=== PATIENT | male | born 1955 | race Caucasian/White ===

== ENCOUNTER 2024-06-24 13:53 | Outpatient (CLI) | payer MEDICARE, SELFPAY ==
--- OUTSIDE RECORDS SUMMARY | 2024-06-24 15:15 | XMS_ITS | Encounter Summary ---
Author Organization [facility] Address [address] [facility] 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 No / Unsure 11/17/2020 10:06 PM CDT documented as of this encounter Plan of Treatment Upcoming Encounters Date Type Department Care Team (Late st Contact Info) Description 07/01/2024 8:30 AM CDT Office Visit [facility] [address] [place] [address] Milad Willingham, BARREL RIBS SOLDERER, INDUSTRIAL HYGIENE MANAGER [address] [address] 07/03/2024 8:20 AM CDT Outpatient Clinic Visit [facility] Weight Management [address] [place] [address] Ofelia Nguyen APRN, INDUSTRIAL HYGIENE MANAGER [address] [place] [address] Discharge Disposition: Discharged to home or Selfcare 07/17/2024 8:45 AM CDT Audiology [facility] - Audiology Clinic - [facility] [address] [place] [address] Clarissa Bryant, AUD CCC A [address] [place] [address] Discharge Disposition: Discharged to home or Selfcare 11/16/2024 9:00 AM CDT Office Visit [facility] [address] [place] [address] Phillip Mancia, BARREL RIBS SOLDERER, CAD DEVELOPER [address] [place], [place] [id number] 05/06/2025 10:30 AM COMBAT CONTROL Office Visit [facility] [address] [place] [address] Marilin Allen, BARREL RIBS SOLDERER, CAD DEVELOPER [address] [place] [address] Discharge Disposition: Discharged to home or Selfcare documented as of this encounter Goals Goal Patient Goal Type Associated Problems Recent Progress Patient-Stated? 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 Reviewed by Dr. Kamini Albert, PhD. Reviewed by Michi Garza M.D. 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 of connective and other soft tissue of pelvis Malignant neoplasm of anus, unspecified (HCC) Anemia, unspecified Other fatigue documented in this encounter Additional Health Concerns Infection Onset Date Last Indicated Resolved Time COVID - 19 04/18/2021 04/18/2021 04/20/2021 9:41 AM COMBAT CONTROL COVID - 19 Confirmed 04/18/2021 04/18/2021 022 12:16 AM COMBAT CONTROL Assessment Noted Time PHQ-9 Depression Total Score: 0 06/22/19 21 10:00 AM CDT documented as of this encounter Care Teams Water Engineer Relationship Specialty Start Date End Date Vasile Lowery MD [address] [place] [address] PCP - General 08/22/09 documented as of this encounter
--- OUTSIDE RECORDS SUMMARY | 2024-06-24 15:15 | XMS_ITS | Encounter Summary ---
Author Organization [facility] Address [address] [facility] [place] [address] Phone Care Team Providers Care Orthodontic Technician Name Role Phone Vasile Lowery MD Primary Care Provider [phone] Reason for Visit * Reason Comments Medication Refill Encounter Details Date Type Department Care Team (Late st Contact Info) Description 05/28/2024 Refill [facility] - Internal Medicine & Pediatrics - [address] [place], [place] [address] Vasile Lowery MD [address] [place], [place] [id number] Medication Refill Social History Tobacco Use Types Packs/Day Years Used Date Smoking Tobacco: Never Passive Smoke Exposure: Past Smokeless Tobacco: Never Alcohol Use Standard Drinks/Week Comments No 0 (1 standard drink = 0.6 oz pur e alcohol) rare use only PHQ-2 Answer Date Recorded Total Score - Questions 1-9 0 12/30 Education Answer Date Recorded What is the highest level of school you have completed or the highest degree you have received? 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 Not on file documented as of this encounter Miscellaneous Notes * Telephone Encounter - Vasile Lowery MD - 05/29/2024 9:00 AM CST Rx filled electronically (E-prescribe) CTOR SALES SUPPORT documented in this encounter Plan of Treatment Upcoming Encounters Date Type Department Care Team (Late st Contact Info) Description 07/01/2024 8:30 AM CDT [facility] [address] [place] [address] Milad Willingham, NURSING SERVICE ADMINISTRATOR, ELECTRIC SEALING MACHINE OPERATOR [address] [address] 07/03/2024 8:20 AM CDT Outpatient Clinic Visit [facility] Weight Management [address] [place] [address] Ofelia Nguyen, NURSING SERVICE ADMINISTRATOR, ELECTRIC SEALING MACHINE OPERATOR [address] [place] [address] Discharge Disposition: Discharged to home or Selfcare 07/17/2024 8:45 AM CDT Audiology [facility] [place] - Audiology Clinic - [place] [address] [place] [address] Clarissa Bryant, AUD CCC A [address] [place] [address] Discharge Disposition: Discharged to home or Selfcare 11/16/2024 9:00 AM CDT Office Visit [facility] [address] [place] [address] Phillip Mancia APRN, WATER OPERATOR [address] [place], [place] [id number] 05/06/2025 10:30 AM DIRECTOR SALES SUPPORT Office Visit [facility] [address] [place] [facility] [address] Marilin Allen, NURSING SERVICE ADMINISTRATOR, WATER OPERATOR [address] [place] [address] Discharge Disposition: Discharged to home or Selfcare documented as of this encounter Goals Goal Patient Goal Type Associated Problems Recent Progress Patient-Stated? Author Pursue weight loss Healthy Lifestyle On track(2024 9:04 AM DIRECTOR SALES SUPPORT) Yes Rachel Hu, RN Note: Goal Reviewed with:Ray Readiness to change: Ready to change Department associated with goal[facility] Steps to achieve goal: [facility] program Improve diet and eat healthier Help with rectal discomfort Manuel would like to walk again Pain Management On track(2024 9:58 AM CDT) No Shanice De Souza, RN Note: Goal Reviewed with: patient Readiness to change: Ready to change Department associated with goal: [facility] Steps to achieve goal: Physical therapy surgery documented as of this encounter Visit Diagnoses Not on filedocumented in this encounter Additional Health Concerns Assessment Noted Time PHQ-9 Depression Total Score: 0 01/11/20 23 11:06 AM CDT documented as of this encounter Care Teams Orthodontic Technician Relationship Specialty Start Date End Date Vasile Lowery MD [address] [place] [address] PCP - General 08/22/09 documented as of this encounter
--- OUTSIDE RECORDS SUMMARY | 2024-06-24 15:15 | XMS_ITS | Encounter Summary ---
Author Organization [facility] Address [address] [facility] [place] [address] Phone Care Team Providers Care Agency Manager Name Role Phone Vasile Lowery MD Primary Care Provider [phone] Encounter Details Date Type Department Care Team (Late st Contact Info) Description 07/04/2020 Telephone [facility] [address] [place] [address] Iva Amador, PT [address] [place], [place] [address] Social History Tobacco Use Types Packs/Day Years Used Date Smoking Tobacco: Never Smokeless Tobacco: Never Alcohol Use Standard Drinks/Week Comments No 0 (1 standard drink = 0.6 oz pur e alcohol) rare use only PHQ-2 Answer Date Recorded Total Score - Questions 1-9 0 05/31 Sex and Gender Information Value Date Recorded Sex Assigned at Not on file Legal Sex Male 3:54 AM ARCHIVAL STUDIES PROFESSOR Gender Identity Not on file Sexual Orientation Not on file 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 No / Unsure 06/28/2020 8:35 AM CDT documented as of this encounter Miscellaneous Notes * Telephone Encounter - Iva Amador PT - 07/04/2020 8:14 AM CDT ----- Message from Jannet Hinds sent at 07/04/2020 7:58 AM CDT ----- Roberto Carlos Cummings will not be in today as he had a in his family. He is aware of his next appt documented in this encounter Plan of Treatment Upcoming Encounters Date Type Department Care Team (Late st Contact Info) Description 07/01/2024 8:30 AM CDT [facility] [address] [place] [address] Milad Willingham APRN, HEATING REPAIR TECHNICIAN [address] [address] 07/03/2024 8:20 AM CDT Outpatient Clinic Visit [facility] Weight Management [address] [place] [address] Ofelia Nguyen AUTOMOBILE BODY REPAIR SUPERVISOR, HEATING REPAIR TECHNICIAN [address] [place] [address] Discharge Disposition: Discharged to home or Selfcare 07/17/2024 8:45 AM CDT Audiology [facility] - Audiology Clinic - [address] [place] [address] Clarissa Bryant, AUD CCC A [address] [place] [address] Discharge Disposition: Discharged to home or Selfcare 11/16/2024 9:00 AM CDT Office Visit [facility] [address] [place] [address] Phillip Mancia, AUTOMOBILE BODY REPAIR SUPERVISOR, PURLER [address] [place] [address] 05/06/2025 10:30 AM ARCHIVAL STUDIES PROFESSOR Office Visit [facility] [address] [place] [address] Marilin Allen, AUTOMOBILE BODY REPAIR SUPERVISOR, PURLER [address] [place] [address] Discharge Disposition: Discharged to home or Selfcare documented as of this encounter Visit Diagnoses Not on filedocumented in this encounter Additional Health Concerns Infection Onset Date Last Indicated Resolved Time COVID - 19 04/18/2021 04/18/2021 04/20/2021 9:41 AM ARCHIVAL STUDIES PROFESSOR COVID - 19 Confirmed 04/18/2021 04/18/2021 022 12:16 AM ARCHIVAL STUDIES PROFESSOR Assessment Noted Time PHQ-9 Depression Total Score: 0 06/22/19 21 10:00 AM CDT documented as of this encounter Care Teams Agency Manager Relationship Specialty Start Date End Date Vasile Lowery MD [address] [place] [address] PCP - General 08/22/09 documented as of this encounter
--- OUTSIDE RECORDS SUMMARY | 2024-06-24 15:15 | XMS_ITS | Encounter Summary ---
Author Organization [facility] Address [address] [facility] [place] [address] Phone Care Team Providers Care Blanking Press Operator Name Role Phone Vasile Lowery MD Primary Care Provider [phone] Encounter Details Date Type Department Care Team (Late st Contact Info) Description 10/30/2021 [facility]phone [facility] [address] [place] [address] Ida Nicole MD [address] [place] [address] Social History Tobacco Use Types Packs/Day Years Used Date Smoking Tobacco: Never Smokeless Tobacco: Never Alcohol Use Standard Drinks/Week Comments No 0 (1 standard drink = 0.6 oz pur e alcohol) rare use only PHQ-2 Answer Date Recorded Total Score - Questions 1-9 0 05/03 Education Answer Date Recorded What is the highest level of school you have completed or the highest degree you have received? 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 No / Unsure 11/01/2021 10:45 AM CDT documented as of this encounter Miscellaneous Notes * Telephone Encounter - Haroon Montenegro - 10/31/2021 8:40 AM CDT Scheduled appt for 11.23 * Telephone Encounter - Ida Nicole MD - 10/30/2021 3:07 PM CDT No * Telephone Encounter - Margy Rodriguez RN - 10/30/2021 3:04 PM CDT No recommendations from MRI??? * Telephone Encounter - Ida Nicole MD - 10/30/2021 2:58 PM CDT Need to see Dr. Gonzales. * Telephone Encounter - Anais Goss RN - 10/30/2021 1:11 PM CDT 10-20-21 Caudal epidural steroid injection under fluoroscopic guidance by Dr. Nicole Pt reports pain to be currently located in bilateral buttock Pt reports pain relief as follows: 0% for per pt epidural did not work Pt reports during this time of relief the ability to nothing easier . Pt uses rest and OTC pain medications. for conservative treatment of pain. Is the patient doing home stretching or current PT treatment? Did PT but it did not work. Pt does do some home stretching Curent pain score at rest is 2 and with activity is 8. Blood thinners: none Medicare A/B Pt does have a new L MRI from 10-23-21 Please review and advise * Telephone Encounter - Haroon Montenegro - 10/30/2021 9:36 AM CDT Patient called to follow up on his last injections. documented in this encounter Plan of Treatment Upcoming Encounters Date Type Department Care Team (Late st Contact Info) Description 07/01/2024 8:30 AM CDT [facility] [address] [place] [address] Milad Willingham APRN, THERAPIST'S ASSISTANT [address] [address] 07/03/2024 8:20 AM CDT Outpatient Clinic Visit [facility] Weight Management [address] [place] [address] Ofelia Nguyen APRN, THERAPIST'S ASSISTANT [address] [place] [address] Discharge Disposition: Discharged to home or Selfcare 07/17/2024 8:45 AM CDT Audiology [facility] [place] - [facility] [place] [address] [place] [address] Clarissa Bryant, AUD CCC A [address] [place] [address] Discharge Disposition: Discharged to home or Selfcare 11/16/2024 9:00 AM CDT Office Visit [facility] [address] [place] [address] Mancia, Phillip A, FOREST WORKER, CAN PUSHER [address] [place] [address] 05/06/2025 10:30 AM LICENSED PRACTICAL NURSE Office Visit [facility] [address] [place] [address] BenitesseMarilin, FOREST WORKER, CAN PUSHER [address] [place] [address] Discharge Disposition: Discharged to home or Selfcare documented as of this encounter Goals Goal Patient Goal Type Associated Problems Recent Progress Patient-Stated? Author Manuel would like to walk again Pain Management On track(2024 9:58 AM CDT) Shanice Hall, RN Note: Goal Reviewed with: patient Readiness to change: Ready to change Department associated with goal: [facility] Steps to achieve goal: Physical therapy surgery documented as of this encounter Visit Diagnoses Not on filedocumented in this encounter Additional Health Concerns Assessment Noted Time PHQ-9 Depression Total Score: 0 06/22/19 21 10:00 AM CDT documented as of this encounter Care Teams Blanking Press Operator Relationship Specialty Start Date End Date Vasile Lowery MD [address] [place] [address] PCP - General 08/22/09 documented as of this encounter
--- OUTSIDE RECORDS SUMMARY | 2024-06-24 15:15 | XMS_ITS | Encounter Summary ---
Author Organization [facility] Address [address] [facility] 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 No / Unsure 07/24/2021 7:56 AM CDT documented as of this encounter Plan of Treatment Upcoming Encounters Date Type Department Care Team (Late st Contact Info) Description 07/01/2024 8:30 AM CDT [facility] [address] [place] [address] Milad Willingham, COMMUNITY CENTER COORDINATOR, COMMUNICATION EQUIPMENT REPAIRER [address] [address] 07/03/2024 8:20 AM CDT [facility] [address] [place] [address] Ofelia Nguyen COMMUNITY CENTER COORDINATOR, COMMUNICATION EQUIPMENT REPAIRER [address] [place] [address] Discharge Disposition: Discharged to home or Selfcare 07/17/2024 8:45 AM CDT Audiology [facility] - [facility] - [facility] [address] [place] [address] Clarissa Bryant, AUD CCC A [address] [place] [address] Discharge Disposition: Discharged to home or Selfcare 11/16/2024 9:00 AM CDT Office Visit [facility] [address] [place] [address] Phillip Mancia APRN, AGENT SPA DESK [address] [place] [address] 05/06/2025 10:30 AM MICA MACHINE OPERATOR Office Visit [facility] [address] [place] [phone] de Marilin Lee, COMMUNITY CENTER COORDINATOR, AGENT SPA DESK [address] [place] [address] Discharge Disposition: Discharged to home or Selfcare documented as of this encounter Goals Goal Patient Goal Type Associated Problems Recent Progress Patient-Stated? Author Manuel would like to walk again Pain Management On track(2024 9:58 AM CDT) No Shanice De Souza RN Note: Goal Reviewed with: patient Readiness to change: Ready to change Department associated with goal: [facility] Steps to achieve goal: Physical therapy surgery documented as of this encounter Results * TYPE & SCREEN (CROSSMATCH CONVERTIBLE) (08/01/2021 7:28 AM CDT) ABO TYPING B 08/01/2021 8:36 AM CDT [facility] RH Positive 08/01/2021 8:36 AM CDT [facility] ABSC Negative 08/01/2021 8:36 AM CDT [facility] Blood Venipuncture / Unknown 08/01/2021 7:28 AM CDT 08/01/2021 7:47 AM CDT us Param Villatoro MD BLOOD BANK ORDERABLES Edited Res ult - Final [facility] [address] [place] [address], documented in this encounter Visit Diagnoses Diagnosis Preop testing- Primary Preoperative examination, unspecified documented in this encounter Additional Health Concerns Assessment Noted Time PHQ-9 Depression Total Score: 0 06/22/19 21 10:00 AM CDT documented as of this encounter Care Teams Associate Quality Engineer Relationship Specialty Start Date End Date Vasile Lowery MD [address] [place] [address] PCP - General 08/22/09 documented as of this encounter
--- OUTSIDE RECORDS SUMMARY | 2024-06-24 15:15 | XMS_ITS | Encounter Summary ---
Author Organization [facility] Address [address] [facility] [place] [address] Phone Care Team Providers Care Customer Service Cashier Name Role Phone Vasile Lowery MD Primary Care Provider [phone] Encounter Details Date Type Department Care Team (Late st Contact Info) Description 06/22/2024 Results Follow-Up [facility] [address] [place] [address] Elba Mendoza, HADOOP INFRASTRUCTURE ARCHITECT, CIRCLE CUTTING SAW OPERATOR [address] [place], [place] [id number] Social History Tobacco Use Types Packs/Day Years Used Date Smoking Tobacco: Never Passive Smoke Exposure: Past Smokeless Tobacco: Never Alcohol Use Standard Drinks/Week Comments No 0 (1 standard drink = 0.6 oz pur e alcohol) rare use only [facility] Utilities Answer Date Recorded In the past 12 months has [employer] electric, gas, oil, or water company threatened to shut off services in your home? No 06/07/2024 Social Connection and Isolat ion Panel [NHANES] Answer Date Recorded In a typical week, how many times do you talk on the phone with family, friends, or neighbors? More than three times a week 06/07/2024 How often do you get togethe r with friends or relatives? More than three times a week 06/07/2024 How often do you attend chur ch or uatsdin services? 1 to 4 times per year 06/07/2024 Do you belong to any clubs o r organizations such as baptism groups, unions, fraternal or athletic groups, or school groups? No 06/07/2024 How often do you attend meet ings of the clubs or organizations you belong to? Patient declined 06/07/2024 Are you , , di vorced, , never , or living with a partner? 06/07/2024 AUDIT-C Answer Date Recorded Q1: How often do you have a drink containing alc ohol? 2-4 times a month 06/07/2024 Q2: How many drinks containi ng alcohol do you have on a typical day when you are drinking? 1 or 2 06/07/2024 Q3: How often do you have si x or more drinks on one occasion? Never 06/07/2024 Overall Financial Resource Strain (CARDIA) Answe r Date Recorded How hard is it for you to pa y for the very basics like food, housing, medical care, and heating? Not very hard 06/07/2024 PHQ-2 Answer Date Recorded Total Score - Questions 1-9 4 05/30 [facility] [place] [facility] - Occupational Stress Questionnaire Answer Date Recorded Do you feel stress - tense, restless, nervous, or anxious, or unable to sleep at night because your mind is troubled all the time - these days? Only a little 06/07/2024 Exercise Vital Sign Answer Date Recorde d On average, how many days pe r week do you engage in moderate to strenuous exercise (like a brisk walk)? 4 days 06/07/2024 On average, how many minutes do you engage in exercise at this level? 110 min 06/07/2024 Hunger Vital Sign Answer Date Recorded Within the past 12 months, y ou worried that your food would run out before you got the money to buy more. Never true 06/08/19 25 Within the past 12 months, t he food you bought just didn't last and you didn't have money to get more. Never true 06/07/2024 PRAPARE - Transportation Answer Date Re corded In the past 12 months, has l ack of transportation kept you from medical appointments or from getting medications? No 11/2024 In the past 12 months, has l ack of transportation kept you from meetings, work, or from getting things needed for daily living? No 06/07/2024 Housing Stability Vital Sign Answer Jose Juan e Recorded In the last 12 months, was t here a time when you were not able to pay the mortgage or rent on time? No 06/07/2024 In the past 12 months, how m any times have you moved where you were living? 0 06/07/2024 At any time in the past 12 m [facility], were you homeless or living in a [facility] (including now)? No 06/07/2024 Education Answer Date Recorded What is the highest level of school you have completed or the highest degree you have received? 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 Not on file Not on file documented as of this encounter Progress Notes * Alee Velasquez RN - 06/22/2024 3:31 PM CDT LMTCB documented in this encounter Plan of Treatment Upcoming Encounters Date Type Department Care Team (Late st Contact Info) Description 07/01/2024 8:30 AM CDT Office [facility] [address] [place] [address] Milad Willingham APRN, DRYWALL TAPER [address] [address] 07/03/2024 8:20 AM CDT Outpatient Clinic Visit [facility] [address] [place] [address] Ofelia Nguyen APRN, DRYWALL TAPER [address] [place] [address] Discharge Disposition: Discharged to home or Selfcare 07/17/2024 8:45 AM CDT Audiology [facility] [place] [facility] - [place] [address] [place] [address] Clarissa Bryant, AUD CCC A [address] [place] [phone] Discharge Disposition: Discharged to home or Selfcare 11/16/2024 9:00 AM CDT Office Visit [facility] [address] [place] [address] Phillip Mancia HADOOP INFRASTRUCTURE ARCHITECT, CIRCLE CUTTING SAW OPERATOR [address] [place] [address] 05/06/2025 10:30 AM STAB SETTER AND DRILLER Office Visit [facility] [address] [place] [phone] Marilin Allen, HADOOP INFRASTRUCTURE ARCHITECT, CIRCLE CUTTING SAW OPERATOR [address] [facility] [place] [place] [address] Discharge Disposition: Discharged to home or Selfcare documented as of this encounter Goals Goal Patient Goal Type Associated Problems Recent Progress Patient-Stated? Author Pursue weight loss Healthy Lifestyle On track(2024 9:04 AM STAB SETTER AND DRILLER) Yes Rachel Hu, RN Note: Goal Reviewed with:Ray Readiness to change: Ready to change Department associated with goal: [facility] Steps to achieve goal: [facility] program Improve diet and eat healthier Help with rectal discomfort Manuel would like to walk again Pain Management On track(2024 9:58 AM CDT) No Shanice De Souza, RN Note: Goal Reviewed with: patient Readiness to change: Ready to change Department associated with goal: [facility] Steps to achieve goal: Physical therapy surgery documented as of this encounter Visit Diagnoses Not on filedocumented in this encounter Additional Health Concerns Assessment Noted Time PHQ-9 Depression Total Score: 4 06/09/19 25 8:00 AM CDT documented as of this encounter Care Teams Customer Service Cashier Relationship Specialty Start Date End Date Vasile Lowery MD [address] [place] [address] PCP - General 08/22/09 documented as of this encounter
--- OUTSIDE RECORDS SUMMARY | 2024-06-24 15:15 | XMS_ITS | Data Portability ---
Author Organization [facility], 800 [facility] Neurology ([place]) Address [address] [place] [address] Care Team Providers Care Sap Abap Programmer Name Role Phone MIGUEL PUMA Primary Care Provider [phone] [facility] [place] Hematology/Oncology Assessment Encounter Date Assessment Date Assessment LastModified by Organization Details LastModified Time 01/20/2024 01/20/2024 -ORDERS: Jun- Aug 2024 Colonoscopy 96073, REUA, Excision of internal Anal canal Papillae 54136, Anoscopy with Biopsies and possible ablation 51765, 81046 Prep: Mechanical bowel prep OR: 45 min, left lateral decubitus on stretcher, MAC, outpt, have special suction, acetic acid, ligasure small hand held, biopsy forceps, Hernandez speculum Follow Up: 6 months after that procedure for repeat office HRA stsoraides Not available 01/20/2024 14:54:27 Plan of Treatment Reminders Order Date Submit Date Provider Last Modified By Organization Details Last Modified Time Details Appointments None record ed. Lab None record ed. Referral None record ed. Procedures None record ed. Surgeries None record ed. Imaging None record ed. Medication Orders None record ed. Patient TargetsNo targets recorded. Patient InstructionsNo instructions recorded. Reason for Referral None Reported. Results Created Date Observation Date Name Description Value Unit Range Abnormal Flag Note LastModifiedBy Organization Detail LastModifiedTime 01/20/2001/24/2024 surgi nelson patho logy study tissue exam biopsy AP [facility] [address],[place] [address] Ph. [phone] David Everett MD, PhD, Medic al Direc tor HELIO DANGELO, BLANKA Bonilla MD Patie nt: SANDRA HANSON ND G Sampl e ID: [id number] Repor t Statu s: Final :0 1955 Case #: [id number] Age: 68 Y Gende r: M Date Colle cted: 01/19 MRN # : [id number] Date Recei emanuel: 01/20 Repor angelica Date: 01/23 FINAL DIAGN OSIS: A. Anus, poste rior canal , biops y: - Benig n colon ic mucos a with hyper plast ic featu res, and scant assoc iated benig n squam ous epith elium - Negat giuseppe for squam ous intra epith elial lesio n or malig mikhail B. Anus, right poste rior canal , biops y: - Benig n squam ous epith elium with react giuseppe featu res and focal mild infla mmati on - Negat giuseppe for squam ous intra epith elial lesio n or malig mikhail C. Anus, anter ior canal , biops y: - Benig n colon ic mucos a with hyper plast ic featu res - No squam ous epith elium is prese nt COMME NT: B: Deepe r secti ons are exami martina. Elect jessica [place] ied by Isaac sanchez MD Elect jessica rolon 01/23 13:51 SPECI MEN SOURC E: A. Anus, poste rior canal , biops y B. Anus, right poste rior canal , biops y C. Anus, anter ior canal , biops y GROSS DESCR IPTIO N: The speci men conta iners and requi sitio n have the same patie nt name. A. Recei emanuel in 10% neutr al buffe red forma ojnathan for forma jonathan-f ixed paraf fin-e mbedd ed secti ons label ed post erior anal biops y now label ed A is a singl e fragm ent of orr- gonzalez soft tissu e that is 0.3 cm in great est dimen sonia. The speci men is entir sunni submi tted for histo logic study in one casse tte. B. Recei emanuel in 10% neutr al buffe red forma jonathan for forma jonathan-f ixed paraf fin-e mbedd ed secti ons label ed righ t poste rior anal biops y now label ed B is a singl e fragm ent of white -orr soft tissu e that is 0.3 cm in great est dimen sonia. The speci men is entir sunni submi tted for histo logic study in one casse tte. C. Recei emanuel in 10% neutr al buffe red forma jonathan for forma jonathan-f ixed paraf fin-e mbedd ed secti ons label ed ante rior anal biops y now label ed C is a singl e fragm ent of orr- gonzalez soft tissu e that is 0.3 cm in great est dimen sonia. The speci men is entir sunni submi tted for histo logic study in one casse tte. [facility] N: Dyspl bita of anus. Not Available [facility] - [facility] [address] [place] [address], [address], 01/24/2024 14:55:19 Result Notes None recorded. Problems Name Problem SNOMED Code Status Onset Date Resolution Date Notes Provider Name and Address Organization Details Recorded Time Carpal tunnel syndrome 05192566 Completed 202301/13/2024 Le guzman, [facility] 15:28:43 Eczema 11445741 Completed 202301/13/2024 [facility] Polyp of colon 32139002 Completed 202301/13/2024 Le Jamas null, [facility] 15:28:54 Contact dermatitis 20492688 Completed 202301/13/2024 [facility]00 Fibrosarcom a Completed 202301/13/2024 Le Irons null, [facility] 15:29:10 Iron deficiency anemia 63327414 Completed 202301/13/2024 Le Irons null, [facility] 15:29:18 Obstructive sleep apnea syndrome 75984880 Completed 202301/13/2024 Le Irons null, [facility] 15:29:23 Postoperati ve nausea and vomiting 7116999 Completed 202301/13/2024 Le Irons null, [facility] 15:29:28 Psoriasis 2869783 Completed 202301/13/2024 [facility]:36 Inguinal hernia 453628481 Completed 202301/13/2024 [facility] 15:29:42 Umbilical hernia 845101525 Completed 202301/13/2024 [facility]:29:48 Obesity 934584036 Completed 202301/13/2024 [facility]:29:57 Spinal stenosis 30461171 Completed 202301/13/2024 Le Irons null, [facility] 15:30:03 Hyperlipide heena 84618737 Completed 202301/13/2024 Le Irons null, [facility] 15:30:11 Varicocele 25532328 Completed 202301/13/2024 [facility]16 Benign prostatic hyperplasia 890545025 Completed 202301/13/2024 [facility]25 Erectile dysfunction 997702346 Completed 202301/13/2024 [facility]30 Malignant tumor of anus 337747134 Active 2023 Ronnie Ruiz MD [address] [place] [address], [address], [facility] 4 14:50:03 Anal intraepithe lial neoplasia 052475339 Active 2023 Ronnie Ruiz MD [address] [place] [address], [address], [facility] 4 14:51:02 Malignant tumor of pelvis 943338524 Active 2023 Ronnie Ruiz MD [address] [place] [address], [address], [facility] 4 14:51:46 Incontinenc e of feces 44345506 Active 2023 Ronnie Ruiz MD [address] [place] [address], [address], [facility] 4 14:56:25 Hypertrophi ed anal papilla 10768296 Active 2023 Ronnie Ruiz MD [address] [place] [address], [address], [facility] 4 14:59:52 Problem Notes None recorded. Procedures Surgical History Date Name Laterality Status Provider Name and Address Organization Details Recorded Time 01/20/20 24 SC Procedure completed Silvia Lovett [facility] 01/20/2024 16:51:19 colonoscopy completed Lesameera Barrow [facility] 01/13/2024 15:26:34 colonoscopic polypectomy completed Le [facility] 01/13/2024 15:26:40 excision of condylomata acuminatum completed [facility] 01/13/2024 15:26:57 excision of anal skin tag completed [facility] 01/13/2024 15:27:39 primary lumbar discectomy completed [facility] 01/13/2024 15:27:21 proctoscopy completed [facility] 01/13/2024 15:28:00 tooth extraction completed [facility] 01/13/2024 15:28:11 insertion of implantable venous access port completed [facility] 01/13/2024 15:28:29 Imaging Results None recorded. Procedure Notes None recorded. Medical Equipment None Reported. Allergies No known drug allergies Medications Name Sig Start Date Stop Date Status Note LastModified by Organization Details LastModified Time tizanidine 2 mg tablet TAKE 1 TABLET BY MOUTH IN THE MORNING AND AT BEDTIME active Not Available Not Available No t Available amitriptyli ne 75 mg tablet TAKE 1 TABLET BY MOUTH EVERY NIGHT active Not Available Not Available No t Available Compazine 10 mg tablet Take 1 tablet 3 times a day by oral route. active Not Available Not Available No t Available phentermine 15 mg capsule TAKE 1 CAPSULE BY MOUTH DAILY. 01/19 completed Not Available Not Available Not Available phentermine 37.5 mg tablet TAKE ONE TABLET BY MOUTH EVERY MORNING active Not Available Not Available No t Available sildenafil 100 mg tablet TAKE 1/2 TO 1 TABLET BY MOUTH NEEDED active Not Available Not Available No t Available Hypodermic [place] 23 gauge x 1 USE TO INJECT TESTOSTER ONE IN THE MUSCLE WEEKLY active Not Available Not Available No t Available tamsulosin 0.4 mg capsule TAKE 1 CAPSULE BY MOUTH DAILY active Not Available Not Available No t Available simvastatin 20 mg tablet Take 1 tablet every day by oral route. active Not Available Not Available No t Available clotrimazol e-betametha sone 1 %-0.05 % topical cream APPLY TOPICALLY TO THE AFFECTED AREA TWICE DAILY active Not Available Not Available No t Available hydrochloro thiazide 12.5 mg capsule Take 1 capsule every day by oral route. active Not Available Not Available No t Available testosteron e cypionate 200 mg/mL intramuscul ar oil INJECT 0.7 MLS INTRAMUSC ULARLY ONCE A WEEK active Not Available Not Available No t Available BD Luer-Mariluz Syringe 3 mL 18 x 1 1/2 USE TO INJECT TESTOSTER ONE ONCE A WEEK active Not Available Not Available No t Available alfuzosin ER 10 mg tablet,exte nded release 24 hr Take 1 tablet every day by oral route. active Not Available Not Available No t Available tadalafil 5 mg tablet TAKE ONE TABLET BY MOUTH EVERY DAY MAY TAKE EXTRA ONE TO THREE TABLETS DAILY NEEDED FOR INTERCOUR SE active Not Available Not Available No t Available tadalafil 20 mg tablet TAKE 1/2 TABLET BY MOUTH WITH 1/2 VIAGRA DIRECTED active Not Available Not Available No t Available emtricitabi ne 200 mg-tenofovi r disoproxil fumarate 300 mg tablet TAKE 1 TABLET BY MOUTH EVERY DAY active Not Available Not Available No t Available Imodium A-D active Not Available Not A vailable Not Available betamethaso ne valerate active Not Available Not Available Not Available Prilosec active Not Available Not Avai lable Not Available gabapentin active Not Available Not Av ailable Not Available multivitami n active Not Available Not Available Not Available Phospho-Tri n Neutral 250 mg tablet TAKE 1 TABLET BY MOUTH TWICE DAILY FOR 14 DAYS active Not Available Not Available No t Available Vitals Date Recorded Body height Body mass index (BMI) Body weight Heart rate Systolic blood pressure Diastolic blood pressure Provider Name and Address Organization Details Last Updated DateTime 4 182.88 cm 26.3 kg/m2 37754.9 2 g 103 /min 135 mm[Hg] 63 mm[Hg] [facility] 13:57:43 Social History None recorded. Functional Status None recorded. Mental Status None recorded. Family History Relationship Description Onset Age of this Age Resolved Age Notes LastModified by Organization Details LastModified Time Sister Familial ovarian cancer [email or web address] Not available 2023 15:24:51 Medical History No medical history recorded. Past Encounters Encounter ID Performer Location Encounter Start Date Encounter Closed Date Diagnosis/Indication Diagnosis SNOMED-CT Code Diagnosis ICD10 Code Diagnosis Note [id number] Ronnie Ruiz MD [facility] ([place]) [address] [facility],[address] [place] [address] 01/20/2024 13:33:38 01/20/2024 17:36:14 Malignant tumor of anus 933343045 C21.0 1. Anal squamous cell carcinoma [id number] now status post completion of chemoradia tion complete 11/19/2016. No evidence of recurrence . Continue with surveillan ce given his high risk. Recent MRI showed some increased activity in the right side of the anal canal but I think this may be his anal papillae. I do not see anything concerning on exam today. We will continue to monitor. 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 Multiple rounds of fulguratio n and HRA starting with Dr. Ramey. Excised area 2019 confirmed as high grade squamous intraepith elial lesion or AIN III ongoing surveillan ce. I did not see any high risk features today, however, he had some aceto-whit e changes that were biopsied and ablated as well as a small ulceration in the right posterior position that was treated. He tolerated this well. Await biopsies. Continue interval surveillan ce every 6-12 months. We can do the next round with his colonoscop y.[facility] History of polyp of colon 278525669 Z86.0100 History of colon polyps. Adenoma 2019. Due for surveillan ce 2024. Plan for colonoscop y early next year. 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 Annual MRI has been part of his surveillan ce and there is no evidence of recurrence of this. This is combined with doing surveillan ce of his anal cancer. Please see above. I did not see any concerning features on HRA today.[facility] Incontinence of feces 72 588642 R15.9 Some incontinen ce infrequent ly to flatus. We talked about potentiall y decreasing the amount of fiber he takes to see if this helps with is flatus. We will continue to monitor this. Likely some combinatio n of age, radiation changes, postsurgic al changes. If this persists we can have him evaluated for sacral nerve stimulator . Hypertroph ied anal papilla 17032278 K62.89 Two left-sided , benign-alex earing anal papillae. I discussed this with the patient. We will plan on excision of these in the operating room under sedation at the same time of his colonoscop y in the upcoming months. He verbalizes understand ing and agrees. Health Concerns Section Related Observation LastModified by Organization Detai ls LastModified Time None Recorded Concern Status LastModified by Organization Details LastModified Time None Recorded Advance Directives Directive None Recorded Payers Encounter Date Sequence Insurance Name Policy Number Policy Weinstein Covered Member ID Weinstein Member ID Guarantor Name 01/20/2024 1 [place] Manuel Rivera Jeronimo [id number] Manuel G Jeronimo 01/20/2024 2 [facility] (MEDICARE SUPPLEMENT) Manuel Rivera Jeronimo [id number] Manuel Decker Notes Date Note Type Note Provider Name and Address Organization Details Recorded Time 01/20/2024 text/html Manuel comes in today for surveillance. He had a recent MRI that showed some possible activity at the anal canal. He has attempted participation in anal intercourse but had some discomfort with this and felt some tissue fullness. He also has some occasional accidents with gas and fecal incontinence. No other concerning findings.gaf Ronnie Ruiz MD [address] [facility], [place], [address], [facility] 01/21/2024 13:41:53
--- OUTSIDE RECORDS SUMMARY | 2024-06-24 15:15 | XMS_ITS | Encounter Summary ---
Author Organization [facility] Address [address] [facility] [place] [address] Phone Care Team Providers Care Child Caregiver Name Role Phone Vasile Lowery MD Primary Care Provider [phone] Reason for Visit * Reason Comments Medication Refill Encounter Details Date Type Department Care Team (Late st Contact Info) Description 09/08/2019 Refill [facility] - [facility] Medicine & Pediatrics - [address] [place], [place] [address] Vasile Lowery MD [address] [place], [place] [id number] Medication Refill Social History Tobacco Use Types Packs/Day Years Used Date Smoking Tobacco: Never Smokeless Tobacco: Never Alcohol Use Standard Drinks/Week Comments No 0 (1 standard drink = 0.6 oz pur e alcohol) rare use only PHQ-2 Answer Date Recorded Total Score - Questions 1-9 0 05/02 Sex and Gender Information Value Date Recorded Sex Assigned at Not on file Legal Sex Male 3:54 AM TESTER REGULATOR Gender Identity Not on file Sexual Orientation Not on file 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 No / Unsure 08/31/2019 8:49 AM CDT documented as of this encounter Miscellaneous Notes * Telephone Encounter - Vasile Lowery MD - 09/08/2019 5:48 PM CDT Rx filled electronically (E-prescribe) * Telephone Encounter - Katia Block APN, RENE - 09/08/2019 2:42 PM CDT Refill request received for zocor Last provided prescription on 09/21/2018for #90 with 3 refills. Last routine visit: 05/19/2019 Labs/testing: NA Upcoming visits: none Refill pending for you to review, consider and approve if indicated. Thank you! documented in this encounter Plan of Treatment Upcoming Encounters Date Type Department Care Team (Late st Contact Info) Description 07/01/2024 8:30 AM CDT [facility] [address] [place] [address] Milad Willingham, IV THERAPY NURSE, RESEARCH SCIENTIST [address] [address] 07/03/2024 8:20 AM CDT Out[facility] [address] [place] [address] Ofelia Nguyen, IV THERAPY NURSE, RESEARCH SCIENTIST [address] [place] [address] Discharge Disposition: Discharged to home or Selfcare 07/17/2024 8:45 AM CDT Audiology [facility] [place] [facility] - [place] [address] [place] [address] Clarissa Bryant, AUD CCC A [address] [place] [address] Discharge Disposition: Discharged to home or Selfcare 11/16/2024 9:00 AM CDT [facility] Visit [facility] [address] [place] [address] Phillip Mancia, IV THERAPY NURSE, COURT MAGISTRATE [address] [place] [address] 05/06/2025 10:30 AM TESTER REGULATOR Office Visit [facility] [address] [place] [address] Marilin Allen, IV THERAPY NURSE, COURT [facility]IST[facility] [address] [facility] [address] [place], [place] [id number] Discharge Disposition: Discharged to home or Selfcare documented as of this encounter Visit Diagnoses Not on filedocumented in this encounter Additional Health Concerns Infection Onset Date Last Indicated Resolved Time COVID - 19 04/18/2021 04/18/2021 04/20/2021 9:41 AM TESTER REGULATOR COVID - 19 Confirmed 04/18/2021 04/18/2021 022 12:16 AM TESTER REGULATOR Assessment Noted Time PHQ-9 Depression Total Score: 0 05/19/19 20 9:06 AM TESTER REGULATOR documented as of this encounter Care Teams Child Caregiver Relationship Specialty Start Date End Date Vasile Lowery MD [address] [place] [address] PCP - General 08/22/09 documented as of this encounter
--- OUTSIDE RECORDS SUMMARY | 2024-06-24 15:15 | XMS_ITS | Encounter Summary ---
Author Organization [facility] Address [address] [facility] 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 No / Unsure 09/18/2021 11:42 AM CDT documented as of this encounter Miscellaneous Notes * Telephone Encounter - Loida Sarabia - 10/06/2021 8:48 AM CDT Patient is scheduled for Caudal epidural #1/4 12 mo Bonnie 10-13-2021 JAIL * Telephone Encounter - Vicenta Herzog RN - 10/05/2021 2:04 PM CDT Please get prior auth for caudal ANISHA NO blood thinners noted. If no auth needed please schedule patient, this is still an epidural steroid injection, Dr. Nicole would just like to dry a different location to see if patient receives any relief. * Telephone Encounter - Endy Nicole MD - 10/05/2021 1:51 PM CDT Schedule for Caudal ANISHA * Telephone Encounter - Vicenta Herzog RN - 10/05/2021 1:11 PM CDT Pt reports pain to be currently located bilateral lower back/buttock 0% relief Pt uses OTC pain medication for conservative treatment of pain. Is the patient doing home stretching or current PT treatment? yes Curent pain score at rest is 2 and with activity is 8. Pt would like to know what other options he has moving forward, pt wanted to remind Dr. Nicole that patient had radiation treatment back in 2017 for cancer and was told that his pain could be a result from the radiation. * Telephone Encounter - Haroon Montenegro - 10/05/2021 12:28 PM CDT Patient called to follow up documented in this encounter Plan of Treatment Upcoming Encounters Date Type Department Care Team (Late st Contact Info) Description 07/01/2024 8:30 AM CDT [facility] [address] [place] [address] Milad Willingham APRN, HEAT TREATER APPRENTICE [address] [address] 07/03/2024 8:20 AM CDT Outpatient Clinic Visit [facility] [address] [place] [address] Ofelia Nguyen APRN, HEAT TREATER APPRENTICE [address] [place] [address] Discharge Disposition: Discharged to home or Selfcare 07/17/2024 8:45 AM CDT Audiology [facility] - Audiology Clinic - [place] Chakraborty [address] [place] [address] Clarissa Bryant, AUD CCC A [address] [place] [address] Discharge Disposition: Discharged to home or Selfcare 11/16/2024 9:00 AM CDT Office Visit [facility] [address] [place] [address] Phillip Mancia APRN, LENS GRINDER [address] [place], [place] [id number] 05/06/2025 10:30 AM FORMING MACHINE TENDER Office Visit [facility] [address] [place] [address] Marilin Allen, CHANGER FIXER, LENS GRINDER [address] [place] [address] Discharge Disposition: Discharged to home or Selfcare documented as of this encounter Goals Goal Patient Goal Type Associated Problems Recent Progress Patient-Stated? Author Manuel would like to walk again Pain Management On track(2024 9:58 AM CDT) No Shanice De Souza, RN Note: Goal Reviewed with: patient Readiness to change: Ready to change Department associated with goal: [facility] Steps to achieve goal: Physical therapy surgery documented as of this encounter Visit Diagnoses Not on filedocumented in this encounter Additional Health Concerns Assessment Noted Time PHQ-9 Depression Total Score: 0 06/22/19 21 10:00 AM CDT documented as of this encounter Care Teams Salon Coordinator Relationship Specialty Start Date End Date Vasile Lowery MD [address] [place] [address] PCP - General 08/22/09 documented as of this encounter
--- OUTSIDE RECORDS SUMMARY | 2024-06-24 15:15 | XMS_ITS | Clinical Summary ---
Author Organization [facility] Address [address] [place] [address] Care Team Providers Care Reporting Process Consultant Name Role Phone Vasile Lowery MD Primary Care Provider [phone] Allergies No known active allergies Medications acetaminophen (TYLENOL) 500 MG Tablet Take 1,000 mg by mouth 3 times daily as needed for Pain. Active Multiple Vitamin (MULTI-VITAMIN PO) Take by mouth. Activ e Omeprazole Magnesium (PRILOSEC PO) Take by mouth every morning. Active Psyllium (METAMUCIL PO) Take by mouth daily. Active Multiple Vitamins-Minerals (ZINC PO) Take 1 Tablet by mouth daily. Active Insulin Syringe-Needle U-100 (INSULIN SYRINGE 1CC/31GX5/16 ) 31G X 5/16 1 ML Misc For use with trimix 90 Each 3 022 Active NEEDLE, DISP, 22 G (BD Eclipse Shielded Needle) 22G X 1 Misc 1 Each by Intramuscular route once a week. 12 Each 1 023 Active Emtricitabine-Ten ofovir AF (DESCOVY) 200-25 MG TabletIndications :Encounter for HIV pre-exposure prophylaxis Take 1 Tablet by mouth daily. 90 Tablet 024 Active clotrimazole-beta methasone (LOTRISONE) 1-0.05 % Cream TOPICAL, apply to affected area twice daily 45 g 1 024 Active COMPOUNDED MEDICATION Quad Mix for ICI Papaverine 30 mg/mL Phentolamine 4 mg/mL Prostaglandin E 40 mcg/mL Atropine 160 mcg/mL Start with 10 units (0.1 mL) daily as needed. Can increase by 10 units (0.1 mL) each dose to a maximum of 100 units (1mL). 5 mL 2 024 Active sildenafil citrate (VIAGRA) 100 MG Tablet Take 1/2 to 1 tab daily as needed for intercourse 30 Tablet 1 024 Active testosterone cypionate (DEPO-TESTOSTERON E) 200 MG/ML SolutionIndicatio ns:Testicular hypofunction 0.7 mL by Intramuscular route once a week. 8 mL 2 024 Active NEEDLE, DISP, 23 G (BD Disp Needle) 23G X 1 Misc To inject testosterone IM weekly 12 Each 024 Active SYRINGE-NEEDLE, DISP, 3 ML (B-D 3CC LUER-ALFREDITO SYR 10JR9-3/2) 18G X 1-2 3 ML Misc 1 Each by Injection route once a week. 12 Each 3 024 Active tadalafil (CIALIS) 10 MG Tablet Take 1 Tablet by mouth daily. 90 Tablet 3 024 Active Phentermine HCl 37.5 MG TabletIndications :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 with body mass index (BMI) of 33.0 to 33.9 in adult (HCC) Take 1 Tablet by mouth every morning (before breakfast) for 120 days. 120 Tablet 025 2024 Active DOCUSATE SODIUM PO Take by mouth as needed. Active simvastatin (ZOCOR) 20 MG Tablet TAKE 1 TABLET BY MOUTH EVERY NIGHT 90 Tablet 025 Active amitriptyline (ELAVIL) 75 MG Tablet Take 1 Tablet by mouth nightly. 90 Tablet 1 025 Active tiZANidine (ZANAFLEX) 2 MG Tablet Take 1 Tablet by mouth 3 times daily. 270 Tablet 1 025 Active Docusate Calcium (STOOL SOFTENER PO) Take 1 Tablet by mouth as needed. 2024 Discontinued(D uplicate Order) simvastatin (ZOCOR) 20 MG Tablet Take 1 Tablet by mouth nightly. 90 Tablet 3 023 2024 Discontinued alfuzosin (UROXATRAL) 10 MG TABLET SR 24 HR Take 1 Tablet by mouth daily (with breakfast). 90 Tablet 3 024 2024 Discontinued(M ed List Clean Up) amitriptyline (ELAVIL) 75 MG Tablet Take 1 Tablet by mouth nightly. 90 Tablet 1 024 2024 Discontinued(R eorder) tiZANidine (ZANAFLEX) 2 MG Tablet Take 1 Tablet by mouth in the morning and at bedtime. 180 Tablet 1 024 2024 Discontinued(R eorder) POTASSIUM CHLORIDE PO Take by mouth in the morning and at bedtime. 14 days 2024 Discontinued(M ed List Clean Up) Active Problems Problem Noted Date Diagnosed Date TIFFANY (obstructive sleep apnea) 02/04/2024 Overview (02/04/2024): Bipap (sleep study 02/03/2024) Bone marrow edema 10/26/2021 Myofascial pain 09/18/2021 Postlaminectomy syndrome of lumbar region 2021 s/p left L4-S1 laminoforaminotomy 08/01/2021 Intervertebral disc disorder with radiculopathy of lumbosacral region 10/07/2020 Herniation of intervertebral disc between L5 and S1 10/07/2020 Facet degeneration of lumbosacral region 021 Spinal stenosis of lumbar re gion with neurogenic claudication 09/19/2020 Prolapsed lumbar disc 09/19/2020 Sensorineural hearing loss (SNHL) of both ears 0 04/29/2020 History of colonic polyps 12/16/2019 BPH with obstruction/lower urinary tract symptom s 12/06/2016 Overview (12/06/2016): 2017 Retention: Flomax 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 [address] [place] [phone] Vasile Lowery MD Need Order; Results 06/22/2024 11:50 AM CDT Lab [facility] - Internal Medicine & Pediatrics - [address] [place] [address] Lab, [place] In/Pediatrics Testicular hypofunction Discharge Disposition: Discharged to home or Selfcare 06/22/2024 Results Follow-Up [facility] [address] [place] [address] Elba Mendoza APRN, PHOTO GRAPHICS LIBRARIAN 06/22/2024 Travel 06/15/2024 9:30 AM CDT Office Visit [facility] [address] [place] [address] Phillip Mancia, WEIGHING STATION OPERATOR, PHOTO GRAPHICS LIBRARIAN Spinal stenosis of lumbar region with neurogenic claudication (Primary Dx); s/p left L4-S1 laminoforaminotomy; Postlaminectomy syndrome of lumbar region; Myofascial pain; Herniation of intervertebral disc between L5 and S1; Facet degeneration of lumbosacral region Discharge Disposition: Discharged to home or Selfcare 06/15/2024 Travel 06/09/2024 Telephone [facility] [address] [place] [phone] Milad Willingham APRN, CUSTOMS PATROL OFFICER Results 06/09/2024 Telephone [facility] - Internal Medicine & Pediatrics - [address] [place] [address] Anastasiia Naqvi, LARRY SURGICAL CLEARANCE ([facility]) 06/08/2024 8:00 AM CDT Office Visit [facility] Pediatric[facility] [address] [place] [address] Anastasiia Naqvi PAC Pre-operative examination (Primary Dx); Erectile dysfunction due to diseases classified elsewhere; Anal cancer (HCC); BPH with obstruction/lower urinary tract symptoms; Testicular hypofunction; Prostate cancer screening Discharge Disposition: Discharged to home or Selfcare 06/08/2024 Results Follow-Up [facility] [address] [place] [address] Milad Willingham, WEIGHING STATION OPERATOR, CUSTOMS PATROL OFFICER 06/08/2024 Refill [facility] Internal Medicine & Pediatrics [facility] [address] [place] [address] Vasile Lowery MD Medication Refill 06/07/2024 Travel 2024 [facility] [address] [place] [phone] Marilin Allen, WEIGHING STATION OPERATOR, PHOTO GRAPHICS LIBRARIAN Obstructive Sleep Apnea (CPAP download) 05/28/2024 Refill [facility] Internal [facility] & Pediatric[facility] [address] [place] [address] Vasile Lowery MD Medication Refill 05/21/2024 9:30 AM DATABASE DEVELOPMENT PROJECT MANAGER Audiology [facility] [place] [address] [place] [phone] Shook Splicer, Audiology Discharge Disposition: Discharged to home or Selfcare 05/21/2024 Travel 05/08/2024 [facility] [address] [place] [phone] Vasile Lowery MD Referral 05/07/2024 Telephone [facility] [address] [place] [address] Vasile Lowery MD Appointment (Pre op appt needed on or after 3-10) 05/06/2024 10:30 AM DATABASE DEVELOPMENT PROJECT MANAGER Office Visit [facility] [address] [place] [address] Marilin Allen APRN, RENE TIFFANY (obstructive sleep apnea) (Primary Dx); Excessive sleepiness Discharge Disposition: Discharged to home or Selfcare 05/04/2024 Travel 04/28/2024 [facility]phone [facility] [address] [place] [address] Vasile Lowery MD Advice Only 04/07/2024 10:30 AM DATABASE DEVELOPMENT PROJECT MANAGER Audiology Tech [facility] [address] [place] [address] Shook Splicer, Audiology 04/06/2024 9:00 AM DATABASE DEVELOPMENT PROJECT MANAGER [facility] [address] [place] [address] Ofelia Nguyen APRN, CUSTOMS PATROL OFFICER 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 with body mass index (BMI) of 33.0 to 33.9 in adult (HCC) (Primary Dx); Mixed hyperlipidemia; TIFFANY (obstructive sleep apnea) Discharge Disposition: Discharged to home or Selfcare 04/05/2024 Travel from Last 3 Months Immunizations Immunization Administration Dates Next Due Covid-19, Mrna, Lnp-s, PF, 1 00 mcg/0.5 mL Dose (Moderna) 03/01/2021,05/27/2020,04/29/2020 Influenza Vaccine 12/15/2012 Influenza Vaccine, Quadrivalent, PF 01/11/2020,0 12/20/2014 Influenza, Quadrivalent, Adjuvanted 12/05/2022,0 12/20/2021 Influenza, Seasonal, Injectable, Undefined 05/16 Influenza, high-dose, trivalent, PF 02/04/2024 PUR FLU 3+ YRS PRES FREE QUAD IM 04/26/2016,12/01 PUR FLU PRES FREE AGE 3+ FULL IM 12/15/2012 PUR FLU W/PRES AGE 3+ FULL IM 12/18/2010,10/25/2 010 PUR TDAP 7+ YRS IM 12/05/2009 Pneumococcal Vaccine Adult - 23 Valent 0 Pneumococcal conjugate PCV20 , polysaccharide [id number] conjugate, adjuvant, PF 02/05/2022 Zoster Vaccine Recombinant 01/29/2022,11/10/2021 Family History Medical History Relation Name Comments Cancer Father lung--smoker Heart Attack Mother at age 81 Diabetes Nephew Stroke Nephew High Cholesterol Sister Hypertension Sister Rheumatoid Arthritis Sister Breast Cancer Neg Hx Ovarian Cancer Neg Hx Relation Name Status Comments Father Mother Nephew Sister Social History Tobacco Use Types Packs/Day Years Used Date Smoking Tobacco: Never Passive Smoke Exposure: Past Smokeless Tobacco: Never Tobacco Cessation:Counseling Given: Not Answered Alcohol Use Standard Drinks/Week Comments No 0 (1 standard drink = 0.6 oz pur e alcohol) rare use only [employer] Util[employer] Answer Date Recorded In the past 12 months has th e electric, gas, oil, or water company threatened [...] week 06/07/2024 How often do you attend [facility] or yazidi services? 1 to 4 times per year 06/07/2024 Do you belong to any clubs o r organizations such as druze groups, unions, fraternal or athletic groups, or [...] Total Score - Questions 1-9 4 05/30 [facility] of Occupat ional Health - Occupational Stress [...] any time in the past [address] [facility], were you homeless or living in a snf (including now)? No 06/07/2024 Education Answer Date Recorded What is the highest level of school you have completed or the highest degree you have received? 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 Not on file Not on file Last Filed Vital Signs Vital Sign Reading Time Taken Comments Blood Pressure 144/69 06/15/2024 9:59 AM CDT Pulse 77 06/15/2024 9:59 AM CDT Temperature 36.6 C (97.8 F) 12/17/2023 11:15 AM CDT Respiratory Rate 18 06/15/2024 9:59 AM CDT Oxygen Saturation 98% 06/15/2024 9:59 AM CDT Inhaled Oxygen Concentration - - Weight 85.3 kg (188 lb) 06/08/2024 8:07 AM CDT Height 177.8 cm (5' 10 ) 06/08/2024 8:07 AM CDT Body Mass Index 26.98 06/08/2024 8:07 AM CDT Plan of Treatment Upcoming Encounters Date Type Department Care Team (Late st Contact Info) Description 07/01/2024 8:30 AM CDT Office Visit [facility] [address] [place] [address] Milad Willingham APRN, CUSTOMS PATROL OFFICER [address] [address] 07/03/2024 8:20 AM CDT [facility] [address] [place] [address] Ofelia Nguyen APRN, CUSTOMS PATROL OFFICER [address] [place] [address] Discharge Disposition: Discharged to home or Selfcare 07/17/2024 8:45 AM CDT Audiology [facility] [place] [facility] - [place] [address] [place] [phone] Clarissa Bryant, AUD CCC A [address] [place] [phone] Discharge Disposition: Discharged to home or Selfcare 11/16/2024 9:00 AM CDT Office Visit [facility] [address] [place] [address] Phillip Mancia, WEIGHING STATION OPERATOR, PHOTO GRAPHICS LIBRARIAN [address] [place] [address] 05/06/2025 10:30 AM DATABASE DEVELOPMENT PROJECT MANAGER Office Visit [facility] [address] [place] [address] Marilin Allen, WEIGHING STATION OPERATOR, PHOTO GRAPHICS LIBRARIAN [address] [place] [id number] Discharge Disposition: Discharged to home or Selfcare Health Maintenance Due Date Last Done Comments Cologuard 2004 Immunochemical Fecal Occult Blood 2004 SARS-COV-2 Immunization (6 - Moderna risk ) 08/03/2024 02/04/2024, 01/17/2022, 03/01/2021, Additional history exists Colonoscopy 12/15/2029 12/16/2019, 09/2016, 09/05/2016, Additional history exists Colorectal Cancer Screening 12/15/2029 Td Immunization Every 10 Years (Adults With 1 Tdap) 02/03/2034 02/04/2024, 12/05/2009 12/16/2019, 09/2016, 09/05/2016, Additional history exists Zoster Immunization Completed 01/29/2022, 2 Pneumococcal Immunization (50+ years) Completed 02/05/2022, 01/11/2020 Pneumococcal Immunization Combined Discontinued 02/05/2022, 01/11/2020 Hepatitis C Virus (HCV) Screening Completed 01/10/2023 Influenza Immunization Completed 4, 12/05/2022, 12/20/2021, Additional history exists Respiratory Syncytial Virus (RSV) Immunization (Adult) Completed 02/04/2024 PSA Discussion Discontinued 06/08/2024, 11/30, 12/05/2022, Additional history exists Hepatitis B Immunization Aged Out No longer eligible based on patient's age to complete this topic Meningococcal Immunization (ACWY) Aged Out No longer eligible based on patient's age to complete this topic Rotavirus Immunization Aged Out No lo nger eligible based on patient's age to complete this topic Goals Goal Patient Goal Type Associated Problems Recent Progress Patient-Stated? Author Pursue weight loss Healthy Lifestyle On track(2024 9:04 AM DATABASE DEVELOPMENT PROJECT MANAGER) Yes Rachel Hu, RN Note: Goal Reviewed with:Ray Readiness to change: Ready to change Department associated with goal: [facility] Steps to achieve goal: MWLC program Improve diet and eat healthier Help with rectal discomfort Manuel would like to walk again Pain Management On track(2024 9:58 AM CDT) No Shanice De Souza RN Note: Goal Reviewed with: patient Readiness to change: Ready to change Department associated with goal: [facility] Steps to achieve goal: Physical therapy surgery Medical Devices Implanted Type Area Ballistics Professor Device Identifier Shelf Expiration Date Model / Serial / Lot Powerport Mri Isp Device With 8f Attacha - [id number] Implanted:Qty : 1 on 10/01/2016 by Jose Nava MD at [facility] IMPLANT Left: Chest Wall CR BARD / BARD BIOPSY 11/29/2020 [id number] / N/A / [id number] Procedures Procedure Name Priority Date/Time Associated Diagnosis Comments FREE (CALC) AND TOTAL TESTOSTERONE Routine 06/22/2024 10:16 AM CDT Testicular hypofunction FREE AND TOTAL TESTOSTERONE Routine 06/22/2024 10:16 AM CDT Testicular hypofunction CBC WITH AUTO DIFFERENTIAL Today 06/08/2024 9:04 AM CDT Pre-operative examination ESTRADIOL Routine 06/08/2024 9:04 AM CDT Testicular hypofunction FREE (CALC) AND TOTAL TESTOSTERONE Routine 06/08/2024 9:04 AM CDT Testicular hypofunction CMP (COMPREHENSIVE METABOLIC PANEL) Today 06/08/2024 9:04 AM CDT Pre-operative examination COMPLETE BLOOD COUNT (CBC) WITH DIFF Today 06/08/2024 9:04 AM CDT Pre-operative examination PSA SCREEN Routine 06/08/2024 9:04 AM CDT Prostate cancer screening ESTRADIOL Routine 06/08/2024 9:04 AM CDT Testicular hypofunction FREE AND TOTAL TESTOSTERONE Routine 06/08/2024 9:04 AM CDT Testicular hypofunction EKG 12 LEAD Routine 06/08/2024 7:39 AM CDT Pre-operative examination EQUIPMENT, SUPPLY, DEVICE DOWNLOAD 06/02/2024 12:00 AM DATABASE DEVELOPMENT PROJECT MANAGER EQUIPMENT, SUPPLY, DEVICE DOWNLOAD 05/03/2024 12:00 AM DATABASE DEVELOPMENT PROJECT MANAGER HEPATITIS C ANTIBODY Routine 01/10/2023 11:13 AM CDT Need for hepatitis C screening test HM COLONOSCOPY Routine 09/05/2016 from Last 3 Months or Most Recently Relevant to Health Maintenance Results * (ABNORMAL) FREE (CALC) AND TOTAL TESTOSTERONE (06/22/2024 10:16 AM CDT) Only the most recent of2 resultswithin the time period is included. TESTOSTERONE, TOTAL 985(H) 221 - 716 ng/dL 06/22/2024 1:17 PM CDT [facility] FREE TESTOSTERONE CALCULATION 25.27(H) 4.7 - 24.4 ng/dL [facility] ARCH [id number] 06/22/2024 1:17 PM CDT [facility] ALBUMIN 4.1 3.5 - 5.0 g/dL 06/22/2024 1:17 PM CDT [facility] SEX HORMONE BINDING GLOBULIN 31.1 11.0 - 78.0 nmol/L 06/22/2024 1:17 PM CDT [facility] Blood Butterfly Punctu re / Unknown 06/22/2024 10:16 AM CDT 06/22/2024 10:16 AM CDT us Milad Willingham APRN, CUSTOMS PATROL OFFICER CHEMISTRY ORDERABLES F inal Result Performing Organization Address [facility] Co de Phone Number [facility] [address] [place] [address], [place] * (ABNORMAL) ESTRADIOL (06/08/2024 9:04 AM CDT) ESTRADIOL, SERUM 63(H) <=44 pg/mL 06/08/2024 2:01 PM CDT [facility] Blood Venipuncture / Unknown 06/08/2024 9:04 AM CDT 06/08/2024 9:04 AM CDT Narrative [facility] - 06/08/2024 2:01 PM CDT ESTRADIOL VALUE NORMAL MENSTRUATING FEMALE FOLLICULAR PHASE <24 - 251 pg/mL MID CYCLE PHASE 38 - 649 pg/mL LUTEAL PHASE <24 - 312 pg/mL POST MENOPAUSAL ON HRT <24 - 144 pg/mL POST MENOPAUSAL NOT ON HRT <24 - 28 pg/mL MALES <24 - 44 pg/mL Patients undergoing Fulvestrant therapy should not be tested by this method as it could produce falsely elevated estradiol results. Milad Willingham APRN, CUSTOMS PATROL OFFICER CHEMISTRY ORDERABLES F inal Result Performing Organization Address [facility] Co de Phone Number [facility] [address] [place] [address], [place] * (ABNORMAL) CBC WITH AUTO DIFFERENTIAL (06/08/2024 9:04 AM CDT) WBC 5.37 4.00 - 12.00 10(3)/mcL 06/08/2024 1:26 PM CDT [facility] RBC 5.14 4.40 - 5.80 10(6)/mcL 06/08/2024 1:26 PM CDT [facility] HEMOGLOBIN (HGB) 15.0 13.0 - 16.5 g/dL 06/08/2024 1:26 PM [facility] HEMATOCRIT (HCT) 46.3 38.0 - 50.0 % 06/08/2024 1:26 PM [facility] MCV 90.1 82.0 - 96.0 fL 06/08/2024 1:26 PM [facility] MCH 29.2 26.0 - 32.0 pg 06/08/2024 1:26 PM [facility] MCHC 32.4 31.0 - 36.0 g/dL 06/08/2024 1:26 PM [facility] PLATELET COUNT 242 140 - 440 10(3)/mcL 06/08/2024 1:26 PM [facility] RDW 14.6 11.8 - 15.5 % 06/08/2024 1:26 PM [facility] MPV 9.9 8.0 - 12.6 fL 06/08/2024 1:26 PM [facility] NEUTROPHILS 77.0(H) 40.0 - 68.0 % 06/08/2024 1:26 PM [facility] LYMPHOCYTES 9.7(L) 19.0 - 49.0 % 06/08/2024 1:26 PM [facility] MONOCYTES 9.5 3.0 - 13.0 % 06/08/2024 1:26 PM [facility] EOSINOPHILS 3.4 0.0 - 8.0 % 06/08/2024 1:26 PM [facility] BASOPHILS 0.4 0.0 - 1.0 % 06/08/2024 1:26 PM [facility] ABSOLUTE NEUTROPHILS 4.14 1.40 - 5.30 10(3)/mcL 06/08/2024 1:26 PM [facility] ABSOLUTE LYMPHOCYTES 0.52(L) 0.90 - 3.30 10(3)/mcL 06/08/2024 1:26 PM [facility] ABSOLUTE MONOCYTES 0.51 0.10 - 0.90 10(3)/mcL 06/08/2024 1:26 PM [facility] ABSOLUTE EOSINOPHIL 0.18 0.00 - 0.50 10(3)/mcL 06/08/2024 1:26 PM CDT [facility] ABSOLUTE BASOPHILS 0.02 0.00 - 0.10 10(3)/mcL 06/08/2024 1:26 PM CDT [facility] NRBC PER 100 WBC 0 06/09/19 25 1:26 PM CDT [facility] Blood Venipuncture / Unknown 06/08/2024 9:04 AM CDT 06/08/2024 9:04 AM CDT Anastasiia Naqvi PAC HEMATOLOGY ORDERABLES Final Res ult Performing Organization Address City/[facility]/ZIP Co de Phone Number [facility] [address] [place] [address], [place] * PSA SCREEN (06/08/2024 9:04 AM CDT) PSA SCREEN, TOTAL 0.90 <4.00 ng/mL 06/08/2024 2:03 PM CDT [facility] Blood Venipuncture / Unknown 06/08/2024 9:04 AM CDT 06/08/2024 9:04 AM CDT Narrative [facility] - 06/08/2024 2:03 PM CDT The ALINITY Total PSA assay is a Chemiluminescent Microparticle Immunoassay (CMIA) for the quantitative determination of total PSA (both free PSA and PSA complexed to [id number]) in human serum. Total PSA values obtained with different assay methods, including Sanz PSA assays, cannot be used interchangeably. Milad Willingham WEIGHING STATION OPERATOR, CUSTOMS PATROL OFFICER CHEMISTRY ORDERABLES F inal Result Performing Organization Address City/[facility]/ZIP Co de Phone Number [facility] [address] [place] [address], [place] * (ABNORMAL) CMP (COMPREHENSIVE METABOLIC PANEL) (06/08/2024 9:04 AM CDT) SODIUM 138 136 - 145 mmol/L 06/08/2024 1:28 PM CDT [facility] POTASSIUM 4.2 3.5 - 5.1 mmol/L 06/08/2024 1:28 PM CDT [facility] CHLORIDE 104 98 - 107 mmol/L 06/08/2024 1:28 PM CDT [facility] CO2, VENOUS 26 22 - 30 mmol/L 06/08/2024 1:28 PM CDT [facility] ANION GAP 8.0 <18.0 mmol/L 06/08/2024 1:28 PM CDT [facility] GLUCOSE 88 70 - 99 mg/dL 06/08/2024 1:28 PM CDT [facility] BUN 11 8 - 26 mg/dL 06/08/2024 1:28 PM CDT [facility] CREATININE, BLOOD 0.86 0.70 - 1.30 mg/dL 06/08/2024 1:28 PM CDT [facility] BUN/CREATININE RATIO 13 12 - 20 ratio 06/08/2024 1:28 PM CDT [facility] TOTAL PROTEIN 6.0 6.0 - 8.0 g/dL 06/08/2024 1:28 PM CDT [facility] ALBUMIN 3.8 3.5 - 5.0 g/dL 06/08/2024 1:28 PM CDT [facility] A/G RATIO 1.7 1.0 - 2.2 06/08/2024 1:28 PM CDT [facility] CALCIUM 8.6(L) 8.7 - 10.5 mg/dL 06/08/2024 1:28 PM CDT [facility] T BILI 0.6 0.2 - 1.2 mg/dL 06/08/2024 1:28 PM CDT [facility] SGOT (AST) 22 <43 U/L 06/08/2024 1:28 PM CDT [facility] SGPT (ALT) 19 <56 U/L 06/08/2024 1:28 PM CDT [facility] ALKALINE PHOSPHATASE 115 40 - 150 U/L 06/08/2024 1:28 PM CDT [facility] IS THE PATIENT REQUIRED TO BE FASTING? No 06/08/2024 1:28 PM CDT [facility] GFR, ESTIMATED >60 >=60 06/08/2024 1:28 PM CDT [facility] Comment: Creatinine Clearance is the preferred criteria for selecting drug dose adjustments in renally impaired patients. The GFR is provided as additional pertinent clinical information. GFR is reported in mL/min/1.73 sq m. Calculation based on the Chronic Kidney Disease Epidemiology Collaboration (CKD- EPI) equation refit without adjustment for race. GFR, EST. >60 >=60 025 1:28 PM CDT [facility] GFR, EST. NONAFRICAN >60 >=60 06/08/2024 1:28 PM CDT [facility] Blood Venipuncture / Unknown 06/08/2024 9:04 AM CDT 06/08/2024 9:04 AM CDT us Anastasiia Naqvi PAC CHEMISTRY ORDERABLES Final Resu lt [facility] [address] [place], [place] [id number], * EKG 12 LEAD (06/08/2024 7:39 AM CDT) Ventricular Rate 77 BPM EXTERNAL EKG Atrial Rate 77 BPM EXTERNAL EKG P-R Interval 168 ms EXTERNAL EKG QRS Duration 104 ms EXTERNAL EKG Q-T Duration 388 ms EXTERNAL EKG QTC CALCULATION 439 ms EXTERNAL EKG P [place] -17 degrees EXTERNAL EKG R [place] -15 degrees EXTERNAL EKG T [place] 11 degrees EXTERNAL EKG 06/08/2024 7:39 AM CDT Impressions EXTERNAL EKG - 06/08/2024 10:20 PM CDT Normal sinus rhythm Normal ECG No previous ECGs available Confirmed by Colt Owen ([id number]) on 06/08/2024 10:19:56 PM Narrative Procedure Note Colt Owen MD - 06/08/2024 IMPRESSION: Normal sinus rhythm Normal ECG No previous ECGs available Confirmed by Colt Owen ([id number]) on 06/08/2024 10:19:56 PM us Anastasiia Naqvi PAC IMG ECG ORDERABLES Final Result EXTERNAL EKG * EQUIPMENT, SUPPLY, DEVICE DOWNLOAD (06/02/2024 12:00 AM DATABASE DEVELOPMENT PROJECT MANAGER) 06/02/2024 us Provider Scan GENERIC SCAN ORDERS Final Result Performing Organization Address City/[facility]/ZIP Co de Phone Number SCAN * EQUIPMENT, SUPPLY, DEVICE DOWNLOAD (05/03/2024 12:00 AM DATABASE DEVELOPMENT PROJECT MANAGER) 05/03/2024 us Provider Scan GENERIC SCAN ORDERS Final Result Performing Organization Address [facility] Co de Phone Number SCAN * HEPATITIS C ANTIBODY (01/10/2023 11:13 AM CDT) hepatitis C antibody 0.11 <1 S/CO [facility] ARCH [id number] B 01/10/2023 5:14 PM CDT [facility] Comment: Signal/Cutoff ratio < 0.79 is Nondetected Signal/Cutoff ratio 0.80-0.99 is Grayzone Signal/Cutoff ratio > 0.99 is Detected Supplemental assays are recommended if signal/cutoff ratio is >/=1.00. Signal/cutoff ratio result >/= 5.00 is 97% predictive of positivity for recombinant immunoblot assay (RIBA) and will be reported to the [place] Department [facility] Public [facility] as required. Blood Venipuncture / Unknown 01/10/2023 11:13 AM CDT 01/10/2023 11:13 AM CDT us Vasile Lowery MD CHEMISTRY ORDERABLES Final Resu lt Performing Organization Address City/[facility] Co de Phone Number [facility] [address] [place] [address], [place] * HM COLONOSCOPY (09/05/2016) us Not On File Provider PROCEDURE/MINOR SURGICAL OR DERABLES Final Result from Last 3 Months or Most Recently Relevant to Health Maintenance Insurance MEDICARE [facility] Care Teams Reporting Process Consultant Relationship Specialty Start Date End Date Vasile Lowery MD [address] [place] [address] PCP - General 08/22/09
--- OUTSIDE RECORDS SUMMARY | 2024-06-24 15:15 | XMS_ITS | Encounter Summary ---
Author Organization [facility] Address [address] [facility] 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); Malignant neoplasm of anus, unspecified (HCC) Social History Tobacco Use Types Packs/Day Years [...] on file Legal Sex Male 3:54 AM SALES RECRUITMENT SPECIALIST Gender Identity Not on file Sexual Orientation Not on file 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 Not on file Not on file documented as of this encounter Plan of Treatment Upcoming Encounters Date Type Department Care Team (Late st Contact Info) Description 07/01/2024 8:30 AM CDT [facility] [address] [place] [address] Milad Willingham, CARDIOPULMONARY TECHNOLOGIST, HAIRSPRING I INSPECTOR [address] [facility] [address] [place] [address] 07/03/2024 8:20 AM CDT Outpatient Clinic Visit [facility] Weight Management [address] [place] [address] Ofelia Nguyen CARDIOPULMONARY TECHNOLOGIST, HAIRSPRING I INSPECTOR [address] [place] [address] Discharge Disposition: Discharged to home or Selfcare 07/17/2024 8:45 AM CDT Audiology [facility] - Audiology Clinic - [facility] [address] [place] [address] Clarissa Bryant, AUD CCC A [address] [place] [phone] Discharge Disposition: Discharged to home or Selfcare 11/16/2024 9:00 AM CDT Office Visit [facility] [address] [place] [address] Phillip Mancia, CARDIOPULMONARY TECHNOLOGIST, TOBACCO DRUMMER [address] [place] [address] 05/06/2025 10:30 AM SALES RECRUITMENT SPECIALIST Office Visit [facility] [address] [place] [address] Marilin Allen, CARDIOPULMONARY TECHNOLOGIST, TOBACCO DRUMMER [address] [place] [address] Discharge Disposition: Discharged to home or Selfcare documented as of this encounter Goals Goal Patient Goal Type Associated Problems Recent Progress Patient-Stated? Author Pursue weight loss Healthy Lifestyle On track(2024 9:04 AM SALES RECRUITMENT SPECIALIST) Yes Rachel Hu, RN Note: Goal Reviewed with:Ray Readiness to change: Ready to change Department associated with goal: [facility] WEIGHT MANAGEMENT Steps to achieve goal: MWLC program Improve diet and eat healthier Help with rectal discomfort Manuel would like to walk again Pain Management On track(2024 9:58 AM CDT) No Shanice De Souza, RN Note: Goal Reviewed with: patient Readiness to change: Ready to change Department associated with goal: [facility] PAIN CLINIC Steps to achieve goal: Physical therapy surgery documented as of this encounter Procedures Procedure Name Priority Date/Time Associated Diagnosis Comments CELIAC ANTIBODY PANEL Routine 01/10/2024 8:19 AM CDT 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, unspecified (HCC) IMMUNOGLOBULIN A (IGA) - CELIAC Routine 01/10/2024 8:19 AM CDT 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, unspecified (HCC) GLIADIN IGA ANTIBODY - CELIAC Routine 01/10/2024 8:19 AM CDT 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, unspecified (HCC) TISSUE TRANSGLUTAMINASE IGA - CELIAC Routine 01/10/2024 8:19 AM CDT 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, unspecified (HCC) documented in this encounter Results * IMMUNOGLOBULIN A (IGA) - CELIAC (01/10/2024 8:19 AM CDT) IMMUNOGLOBULIN A 103 101 - 645 mg/dL 01/10/2024 10:45 AM CDT [facility] Blood 01/10/2024 8:19 AM CDT 01/10/2024 10:04 AM CDT Gudelia Astudillo MD IMMUNOLOGY ORDERABLES Final Res ult Performing Organization Address City/[facility] Co de Phone Number [facility] [address] [place] [address], [place] * GLIADIN IGA ANTIBODY - CELIAC (01/10/2024 8:19 AM CDT) DEAMIDATED GLIADIN IGA <0.2 <15.0 U/mL 01/10/2024 11:13 AM CDT [facility] Blood 01/10/2024 8:19 AM CDT 01/10/2024 10:04 AM CDT Narrative [facility] - 01/10/2024 11:13 AM CDT Antibody testing was performed by multiplex flow immunoassay on the BioPlex platform. Gudelia Astudillo MD IMMUNOLOGY ORDERABLES Final Res ult Performing Organization Address [facility] Co de Phone Number [facility] [address] [place] [address], [place] * TISSUE TRANSGLUTAMINASE IGA - CELIAC (01/10/2024 8:19 AM CDT) TTG IGA <0.5 <15.0 U/mL 01/10/2024 11:13 AM CDT [facility] Blood 01/10/2024 8:19 AM CDT 01/10/2024 10:04 AM CDT Narrative [facility] - 01/10/2024 11:13 AM CDT Antibody testing was performed by multiplex flow immunoassay on the BioPlex platform. 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
--- OUTSIDE RECORDS SUMMARY | 2024-06-24 15:15 | XMS_ITS | Encounter Summary ---
Author Organization [facility] Address [address] 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 No / Unsure 01/14/2023 9:53 AM CDT documented as of this encounter Miscellaneous Notes * Telephone Encounter - Anais Oliveira RN - 01/14/2023 3:43 PM CDT Prescription placed on 12/11/22 for 90 tablets with 4 refills, requested too soon documented in this encounter Plan of Treatment Upcoming Encounters Date Type Department Care Team (Late st Contact Info) Description 07/01/2024 8:30 AM CDT [facility] [address] [place] [address] Milad Willingham APRN, RACING BOARD MARKER [address] [address] 07/03/2024 8:20 AM CDT Outpatient Clinic Visit [facility] Weight Management [address] [place] [address] Ofelia Nguyen APRN, RACING BOARD MARKER [address] [place] [address] Discharge Disposition: Discharged to home or Selfcare 07/17/2024 8:45 AM CDT Audiology [facility] - [facility]iology Clinic - [place] [address] [place] [address] Clarissa Bryant, AUD [facility] A [address] [place] [phone] Discharge Disposition: Discharged to home or Selfcare 11/16/2024 9:00 AM CDT Office Visit [facility] [address] [place] [address] Phillip Mancia, RESTAURANT MANAGER, CAR SHAKEOUT OPERATOR [address] [place], [place] [address] 05/06/2025 10:30 AM STOCK FITTER Office Visit [facility] [address] [place] [address] Marilin Allen, RESTAURANT MANAGER, CAR SHAKEOUT OPERATOR [address] [place] [address] Discharge Disposition: Discharged to home or Selfcare documented as of this encounter Goals Goal Patient Goal Type Associated Problems Recent Progress Patient-Stated? Author Pursue weight loss Healthy Lifestyle On track(2024 9:04 AM STOCK FITTER) Yes Rachel uH, RN Note: Goal Reviewed with:Ray Readiness to change: Ready to change Department associated with goal: [facility] WEIGHT MANAGEMENT Steps to achieve goal: MWLC program Improve diet and eat healthier Help with rectal discomfort Manuel would like to walk again Pain Management On track(2024 9:58 AM CDT) No Shanice De Souza, RN Note: Goal Reviewed with: patient Readiness to change: Ready to change Department associated with goal: [facility] PAIN CLINIC Steps to achieve goal: Physical therapy surgery documented as of this encounter Visit Diagnoses Diagnosis Erectile dysfunction, unspecified erectile dysfunction type documented in this encounter Additional Health Concerns Assessment Noted Time PHQ-9 Depression Total Score: 0 01/11/20 23 11:06 AM CDT documented as of this encounter Care Teams Monitor Worker Relationship Specialty Start Date End Date Vasile Lowery MD [address] [place], [place] [id number] PCP - General 08/22/09 documented as of this encounter
--- OUTSIDE RECORDS SUMMARY | 2024-06-24 15:15 | XMS_ITS | Encounter Summary ---
Author Organization [facility] Address [address] [facility] [place] [address] Phone Care Team Providers Care Underground Foreman Name Role Phone Vasile Lowery MD Primary Care Provider [phone] Reason for Visit * Reason Comments Medication Refill Encounter Details Date Type Department Care Team (Late st Contact Info) Description 08/31/2020 Refill [facility] - [facility] Medicine & Pediatrics - [address] [place], [place] [address] Vasile Lowery MD [address] [place], [place] [id number] Medication Refill Social History Tobacco Use Types [...] on file Legal Sex Male 3:54 AM RAG CUTTING MACHINE TENDER Gender Identity Not on file Sexual Orientation Not on file 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 No / Unsure 08/25/2020 9:45 PM CDT documented as of this encounter Plan of Treatment Upcoming Encounters Date Type Department Care Team (Late st Contact Info) Description 07/01/2024 8:30 AM CDT [facility] [address] [place] [address] Milad Willingham, DIAMOND POWDER MIXER, MANAGER CATEGORY [address] [facility] [address] [place] [address] 07/03/2024 8:20 AM CDT Outpatient Clinic Visit [facility] Weight Management [address] [place] [address] Ofelia Nguyen DIAMOND POWDER MIXER, MANAGER CATEGORY [address] [place] [address] Discharge Disposition: Discharged to home or Selfcare 07/17/2024 8:45 AM CDT Audiology [facility] - Audiology Clinic - [facility] [address] [place] [address] Clarissa Bryant, AUD KENNY A [address] [place] [phone] Discharge Disposition: Discharged to home or Selfcare 11/16/2024 9:00 AM CDT Office Visit [facility] [address] [place] [address] Phillip Mancia, DIAMOND POWDER MIXER, GANG RIDER [address] [place] [address] 05/06/2025 10:30 AM RAG CUTTING MACHINE TENDER Office Visit [facility] [address] [place] [address] Marilin Allen, DIAMOND POWDER MIXER, GANG RIDER [address] [place] [address] Discharge Disposition: Discharged to home or Selfcare documented as of this encounter Visit Diagnoses Not on filedocumented in this encounter Additional Health Concerns Infection Onset Date Last Indicated Resolved Time COVID - 19 04/18/2021 04/18/2021 04/20/2021 9:41 AM RAG CUTTING MACHINE TENDER COVID - 19 Confirmed 04/18/2021 04/18/2021 022 12:16 AM RAG CUTTING MACHINE TENDER Assessment Noted Time PHQ-9 Depression Total Score: 0 06/22/19 21 10:00 AM CDT documented as of this encounter Care Teams Underground Foreman Relationship Specialty Start Date End Date Vasile Lowery MD [address] [place] [address] PCP - General 08/22/09 documented as of this encounter
--- OUTSIDE RECORDS SUMMARY | 2024-06-24 15:15 | XMS_ITS | Encounter Summary ---
Author Organization [facility] Address [address] [facility] 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 file Not on file documented as of this encounter Miscellaneous Notes * Telephone Encounter - SheilayakelinFrancoise real Chucho - 08/27/2023 8:16 AM CDT Called and spoke with pt he will get labs done and then call back to reschedule documented in this encounter Plan of Treatment Upcoming Encounters Date Type Department Care Team (Late st Contact Info) Description 07/01/2024 8:30 AM CDT [facility] [address] [place] [address] Milad Willingham APRN, JEWELRY MAKER [address] [address] 07/03/2024 8:20 AM CDT Outpatient Clinic Visit [facility] Weight Management [address] [place] [address] Ofelia Nguyen APRN, JEWELRY MAKER [address] [place] [address] Discharge Disposition: Discharged to home or Selfcare 07/17/2024 8:45 AM CDT Audiology [facility] - Audiology Clinic - [facility] [address] [place] [address] Clarissa Bryant, AUD CCC A [address] [place] [phone] Discharge Disposition: Discharged to home or Selfcare 11/16/2024 9:00 AM CDT Office Visit [facility] [address] [place] [address] Phillip Mancia, CARE DIRECTOR RN, SINGLE END SEWER [address] [place] [address] 05/06/2025 10:30 AM CHEMICAL MAKER Office Visit [facility] [address] [place] [address] Marilin Allen, CARE DIRECTOR RN, SINGLE END SEWER [address] [place] [address] Discharge Disposition: Discharged to home or Selfcare documented as of this encounter Goals Goal Patient Goal Type Associated Problems Recent Progress Patient-Stated? Author Pursue weight loss Healthy Lifestyle On track(2024 9:04 AM CHEMICAL MAKER) Yes Rachel Hu, RN Note: Goal Reviewed with:Ray Readiness to change: Ready to change Department associated with goal: [facility] WEIGHT MANAGEMENT Steps to achieve goal: MWLC program Improve diet and eat healthier Help with rectal discomfort Manuel would like to walk again Pain Management On track(2024 9:58 AM CDT) No Shanice De Souza, RN Note: Goal Reviewed with: patient Readiness to change: Ready to change Department associated with goal: [facility] Steps to achieve goal: Physical therapy surgery documented as of this encounter Visit Diagnoses Not on filedocumented in this encounter Additional Health Concerns Assessment Noted Time PHQ-9 Depression Total Score: 0 01/11/20 23 11:06 AM CDT documented as of this encounter Care Teams Publication Editor Relationship Specialty Start Date End Date Vasile Lowery MD [address] [place] [address] PCP - General 08/22/09 documented as of this encounter
--- OUTSIDE RECORDS SUMMARY | 2024-06-24 15:15 | XMS_ITS | Encounter Summary ---
Author Organization [facility] Address [address] [facility] [place] [address] Phone Care Team Providers Care Sand Control Worker Name Role Phone Vasile Lowery MD Primary Care Provider [phone] Reason for Visit * Reason Comments Medication Refill Encounter Details Date Type Department Care Team (Late st Contact Info) Description 09/21/2020 Refill [facility] - Internal Medicine & Pediatrics - [address] [place], [place] [id number] Vasile Lowery MD [address] [place], [place] [id number] Medication Refill Social History Tobacco Use Types [...] on file Legal Sex Male 3:54 AM PROSECUTING ATTORNEY Gender Identity Not on file Sexual Orientation Not on file 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 No / Unsure 09/18/2020 8:03 PM CDT documented as of this encounter Miscellaneous Notes * Telephone Encounter - Thu Diaz RN - 09/28/2020 12:56 PM CDT Called patient. He states he plans to order picker/assembler his albuterol inhaler from the pharmacy tomorrow. I asked him specifically if the albuterol inhaler was helping, and he did not give a clear answer. He said, don't know if it was doing that good. I asked if it helped with his breathing, and he said, not totally used to it yet. * Telephone Encounter - Vasile Lowery MD - 09/22/2020 7:17 AM CDT Rx filled electronically (E-prescribe) Did the albuterol help? * Telephone Encounter - Venecia Vee RN - 09/21/2020 8:13 PM CDT JOANA: 06-21-2020 w/ PCP for dyspnea on exertion, lumbar pain, sarcoma of buttock, iron deficiency, gluteal pain Next OV: None Notes from 08-30-2020; test result: Lung function test shows normal spirometry though there is some elevated airway resistance which could indicate obstruction. Could have him try an albuterol inhaler on an as-needed basis to see if that helps with his symptoms. documented in this encounter Plan of Treatment Upcoming Encounters Date Type Department Care Team (Late st Contact Info) Description 07/01/2024 8:30 AM CDT Office Visit [facility] [address] [place] [address] Milad Willingham, HELICOPTER MECHANIC, MAINTENANCE REPAIRMAN [address] [address] 07/03/2024 8:20 AM CDT [facility] [address] [place] [address] Ofelia Nguyen APRN, MAINTENANCE REPAIRMAN [address] [place] [address] Discharge Disposition: Discharged to home or Selfcare 07/17/2024 8:45 AM CDT Audiology [facility] Neurological [place] - Audiology Clinic - [facility] [address] [place] [address] Clarissa Bryant, [facility] CCC A [address] [place] [address] Discharge Disposition: Discharged to home or Selfcare 11/16/2024 9:00 AM CDT Office Visit [facility] [address] [place] [address] Phillip Mancia, HELICOPTER MECHANIC, DIRECTOR OF WORKFORCE DEVELOPMENT [address] [place] [address] 05/06/2025 10:30 AM PROSECUTING ATTORNEY Office Visit [facility] [address] [place] [place] [address] Marilin Allen, HELICOPTER MECHANIC, DIRECTOR OF WORKFORCE DEVELOPMENT [address] [place] [address] Discharge Disposition: Discharged to home or Selfcare documented as of this encounter Goals Goal Patient Goal Type Associated Problems Recent Progress Patient-Stated? Author Manuel would like to walk again Pain Management On track(2024 9:58 AM CDT) No Shanice De Souza, RN Note: Goal Reviewed with: patient Readiness to change: Ready to change Department associated with goal: [facility] Steps to achieve goal: Physical therapy surgery documented as of this encounter Visit Diagnoses Not on filedocumented in this encounter Additional Health Concerns Infection Onset Date Last Indicated Resolved Time COVID - 19 04/18/2021 04/18/2021 04/20/2021 9:41 AM PROSECUTING ATTORNEY COVID - 19 Confirmed 04/18/2021 04/18/2021 022 12:16 AM PROSECUTING ATTORNEY Assessment Noted Time PHQ-9 Depression Total Score: 0 06/22/19 21 10:00 AM CDT documented as of this encounter Care Teams Sand Control Worker Relationship Specialty Start Date End Date Vasile Lowery MD [address] [place] [address] PCP - General 08/22/09 documented as of this encounter
--- OUTSIDE RECORDS SUMMARY | 2024-06-24 15:15 | XMS_ITS | Encounter Summary ---
Author Organization [facility] Address [address] [facility] [place] [address] Phone Care Team Providers Care Infectious Waste Technician Name Role Phone Vasile Lowery MD Primary Care Provider [phone] Reason for Visit * Reason Onset Date Comments Need Order 06/24/2024 Results 06/24/2024 Encounter Details Date Type Department Care Team (Late st Contact Info) Description 06/24/2024 Telephone [facility] [address] [place] [address] Vasile Lowery MD [address] [place] [address] Need Order; Results Social History Tobacco Use Types Packs/Day Years Used Date Smoking Tobacco: Never Passive Smoke Exposure: Past Smokeless Tobacco: Never Alcohol Use Standard Drinks/Week Comments No 0 (1 standard drink = 0.6 oz pur e alcohol) rare use only [facility] Utilities Answer Date Recorded In the past 12 months has [employer] electric, gas, oil, or water company threatened [...] 06/07/2024 How often do you attend chur or quaker services? 1 to 4 times per year 06/07/2024 Do you belong to any clubs o r organizations such as lutheran groups, unions, fraternal or athletic groups, or [...] Total Score - Questions 1-9 4 05/30 [facility] - Occupational Stress [...] any time in the past 12 m ont, were you homeless or living in a residential (including now)? No 06/07/2024 Education Answer Date Recorded What is the highest level of school you have completed or the highest degree you have received? 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 Call is concerning Manuel. Patient's PCPis Vasile Lowery MD. Thank you. documented in this encounter Plan of Treatment Upcoming Encounters Date Type Department Care Team (Late st Contact Info) Description 07/01/2024 8:30 AM CDT Office Visit [facility] [address] [place] [address] Milad Willingham, BREAD DISTRIBUTOR, DERRICK HAND [address] [address] 07/03/2024 8:20 AM CDT [facility] [address] [place] [address] Ofelia Nguyen APRN, DERRICK HAND [address] [place] [address] Discharge Disposition: Discharged to home or Selfcare 07/17/2024 8:45 AM CDT Audiology [facility] - Audiology Clinic - [facility] [address] [place] [address] Clarissa Brynat, AUD CCC A [address] [place] [address] Discharge Disposition: Discharged to home or Selfcare 11/16/2024 9:00 AM CDT Office Visit [facility] [address] [place] [address] Phillip Mancia APRN, EDITOR CONTINUITY AND SCRIPT [address] [place], [place] [address] 05/06/2025 10:30 AM PURCHASING ADMINISTRATOR Office Visit [facility] [address] [place] [phone] Marilin Allen APRN, EDITOR CONTINUITY AND SCRIPT [address] [place], [place] [address] Discharge Disposition: Discharged to home or Selfcare documented as of this encounter Goals Goal Patient Goal Type Associated Problems Recent Progress Patient-Stated? Author Pursue weight loss Healthy Lifestyle On track(2024 9:04 AM PURCHASING ADMINISTRATOR) Yes Rachel Hu, RN Note: Goal Reviewed with:Ray Readiness to change: Ready to change Department associated with goal: [facility] WEIGHT MANAGEMENT Steps to achieve goal: MWLC program Improve diet and eat healthier Help with rectal discomfort Manuel would like to walk again Pain Management On track(2024 9:58 AM CDT) No Shanice De Souza, RN Note: Goal Reviewed with: patient Readiness to change: Ready to change Department associated with goal: [facility] Steps to achieve goal: Physical therapy surgery documented as of this encounter Visit Diagnoses Not on filedocumented in this encounter Additional Health Concerns Assessment Noted Time PHQ-9 Depression Total Score: 4 06/09/19 25 8:00 AM CDT documented as of this encounter Care Teams Infectious Waste Technician Relationship Specialty Start Date End Date Vasile Lowery MD [address] [place] [address] PCP - General 08/22/09 documented as of this encounter
[2024-06-24 15:58] LABS: Hemoglobin A1C 5.2 % (<5.7)
== END 2024-06-24 13:54 | disposition home or self-care (01) ==
PROVIDERS: Visit Provider Urology
DX: N52.9 Male erectile dysfunction, unspecified (principal)
CPT/HCPCS: 36415; 83036

== ENCOUNTER 2024-07-08 00:10 | Day surgery (SDC) | payer MEDICARE, SELFPAY ==
[2024-06-24 14:30] VITALS: PULSE 80; RESP 16; TEMP 36.8; O2SAT 97; BMI 24.7
--- NOTE | 2024-06-24 14:53 | PC.NURSE ---
Report to the Outpatient Waiting Room, entrance under the green pavilion located off [facility], at time _0900am on date _07/08/24 . Planned Procedure Time: __1100am .? Time changes happen often and if your time is changed the preop area will call you the afternoon before. - You and your visitor will be asked to self-screen and do not enter if you have any COVID symptoms. Please call surgeon if you need to reschedule. - A mask is optional within the hospital at this time. Patients may have clear liquids (water, carbonated beverages, clear teas, apple juice) until 3 hours prior to surgery with a maximum of 20 ounces. - No food from midnight until time of surgery and no smoking, or chewing tobacco (or any form of nicotine). No chewing gum, candy or mints. (0800am) Take only the following medications with a SIP of water on the morning of surgery: ___None DO NOT STOP ANY OF YOUR OTHER PRESCRIPTION MEDICATIONS PRIOR TO SURGERY EXCEPT THE FOLLOWING Hold all vitamins and supplements for 3 days per anesthesiologist. Medications to discontinue per physician Motrin for [address] Gr Date to take last dose___ 06/28/24 Please no make-up, nail english, hairspray, perfume, deodorant, or body powder the day of surgery.? No jewelry (including any body piercings) or valuables the day of surgery, leave them at home.? Please take a shower or bath the night before, or the morning of, surgery with an antibacterial soap and Scrub per Dr Gr & po Antibiotics prep too. ? Wear comfortable, loose fitting clothing.? - Jewelry must be removed prior to entering the operating room.? Rings and piercings that are not removed may be cut off. - The hospital will not accept responsibility for valuables.? - Please leave all valuables, including medications, at home the day of surgery. If you are going home after surgery, a licensed dairy truck driver must drive you home.? - NO public transportation without another adult if you receive anesthesia. - We recommend that an adult stay with you for 24 hours following discharge. - We also recommend that you do not drive, make important decision, drink alcoholic beverages, or take any drugs that were not prescribed by your health care provider for at least 24 hours after your discharge time. Follow any additional instructions given to you from your surgeon. Telephone instructions given to __Patient and asked if any additional questions and then verbalized understanding. Patient advised to call surgeon office or pre surgery nurse liaison [phone] if any additional questions.
[2024-07-08] VITALS (9 sets, daily range): BP systolic 119–143; BP diastolic 65–78; PULSE 76–88; RESP 12–20; TEMP 36.6–37.1; O2SAT 94–100
--- OUTSIDE RECORDS SUMMARY | 2024-07-08 00:12 | XMS_ITS | Encounter Summary ---
Author Organization [facility] Address [address] [facility] 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 Neurological [place] - Audiology Clinic - [facility] [address] [place] [address] Clarissa Bryant, JEEVAN CCC A [address] [place] [address] Discharge Disposition: Discharged to home or Selfcare 10/05/2024 9:40 AM CDT Outpatient [facility] [address] [place] [address] Ofelia Nguyen APRN, RAILROAD POLICE OFFICER [address] [place] [address] 11/16/2024 9:00 AM CDT Office Visit [facility] [address] [place] [address] Phillip Mancia APRN, VISUAL AID EXPERT [address] [place], [place] [id number] 01/08/2025 9:30 AM CDT 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 [place] [address] Discharge Disposition: Discharged to home or Selfcare documented as of this encounter Goals Goal Patient Goal Type Associated Problems Recent Progress Patient-Stated? Author Manuel would like to walk again Pain Management On track(2024 9:58 AM CDT) Shanice Hall, RN Note: Goal Reviewed with: patient Readiness to change: Ready to change Department associated with goal: [facility] Steps to achieve goal: Physical therapy surgery documented as of this encounter Visit Diagnoses Not on filedocumented in this encounter Additional Health Concerns Assessment Noted Time PHQ-9 Depression Total Score: 0 06/22/19 21 10:00 AM CDT documented as of this encounter Care Teams Elevator Conductor Relationship Specialty Start Date End Date Vasile Lowery MD [address] [place], [place] [address] PCP - General 08/22/09 documented as of this encounter
--- OUTSIDE RECORDS SUMMARY | 2024-07-08 00:12 | XMS_ITS | Encounter Summary ---
Author Organization [facility] Address [address] [facility] 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 Gender Identity Not on file Sexual Orientation Not on file 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 Not on file Not on file COVID-19 Exposure Response Date Recorded In the last 10 days, have leif tellez been in contact with someone who was [...] Info) Description 07/17/2024 8:45 AM CDT Audiology [facility] - Audiology Clinic - [facility] [address] [place] [address] Clarissa Bryant, AUD CCC A [address] [place] [address] Discharge Disposition: Discharged to home or Selfcare 10/05/2024 9:40 AM CDT Outpatient Clinic Visit [facility] Weight Management [address] [place] [address] Ofelia Nguyen, PATIENT SAFETY ATTENDANT, CUSTOMER SUPPORT ADVISOR [address] [place] [address] 11/16/2024 9:00 AM CDT Office Visit [facility] [address] [place] [address] Phillip Mancia, MERVIN, NUMERICAL TOOL PROGRAMMER [address] [place], [place] [address] 01/08/2025 9:30 AM CDT [facility] [address] [place] [address] Milad Willingham, PATIENT SAFETY ATTENDANT, CUSTOMER SUPPORT ADVISOR [address] [address] 05/06/2025 10:30 AM FOOD PRODUCTION SUPERVISOR Office Visit [facility] [address] [place] [address] Marilin Allen, PATIENT SAFETY ATTENDANT, NUMERICAL TOOL PROGRAMMER [address] [place] [address] Discharge Disposition: Discharged to home or Selfcare documented as of this encounter Goals Goal Patient Goal Type Associated Problems Recent Progress Patient-Stated? Author Pursue weight loss Healthy Lifestyle On track(2024 8:41 AM CDT) Yes Rachel Hu, RN Note: Goal Reviewed with:Ray Readiness to change: Ready to change Department associated with goal: [facility] WEIGHT MANAGEMENT Steps to achieve goal: MWLC program Improve diet and eat healthier Help with rectal discomfort Manuel would like to walk again Pain Management On track(2024 9:58 AM CDT) No Shanice De Souza, RN Note: Goal Reviewed with: patient Readiness to change: Ready to change Department associated with goal: [facility] Steps to achieve goal: Physical therapy surgery documented as of this encounter Visit Diagnoses Diagnosis Erectile dysfunction, unspecified erectile dysfunction type documented in this encounter Additional Health Concerns Assessment Noted Time PHQ-9 Depression Total Score: 0 01/11/20 23 11:06 AM CDT documented as of this encounter Care Teams Millstone Cleaner Relationship Specialty Start Date End Date Vasile Lowery MD [address] [place] [address] PCP - General 08/22/09 documented as of this encounter
--- OUTSIDE RECORDS SUMMARY | 2024-07-08 00:12 | XMS_ITS | Encounter Summary ---
Author Organization [facility] Address [address] [facility] 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 Gender Identity Not on file Sexual Orientation [...] Info) Description 07/17/2024 8:45 AM CDT Audiology [facility] - Audiology Clinic - [facility] [address] [place] [address] Clarissa Bryant AUD CCC A [address] [place] [address] Discharge Disposition: Discharged to home or Selfcare 10/05/2024 9:40 AM CDT Outpatient Clinic Visit [facility] Weight Management [address] [place] [address] Ofelia Nguyen APRN, PACK PULLER [address] [place] [address] 11/16/2024 9:00 AM CDT Office Visit [facility] [address] [place] [address] Phillip Mancia APRN, BLADE GRINDER [address] [place] [address] 01/08/2025 9:30 AM CDT Office Visit [facility] UR[facility] [address] [place] [address] Milad Willingham, MACHINE I COREMAKER, PACK PULLER [address] [place], [place] [address] 05/06/2025 10:30 AM PURCHASING INTERNSHIP Office Visit [facility] [address] [place] [address] Marilin Allen MACHINE I COREMAKER, BLADE GRINDER [address] [place] [address] Discharge Disposition: Discharged to home or Selfcare documented as of this encounter Visit Diagnoses Not on filedocumented in this encounter Additional Health Concerns Infection Onset Date Last Indicated Resolved Time COVID - 19 04/18/2021 04/18/2021 04/20/2021 9:41 AM PURCHASING INTERNSHIP COVID - 19 Confirmed 04/18/2021 04/18/2021 022 12:16 AM PURCHASING INTERNSHIP Assessment Noted Time PHQ-9 Depression Total Score: 0 06/22/19 21 10:00 AM CDT documented as of this encounter Care Teams Recovery Rn Relationship Specialty Start Date End Date Vasile Lowery MD [address] [place] [address] PCP - General 08/22/09 documented as of this encounter
--- OUTSIDE RECORDS SUMMARY | 2024-07-08 00:12 | XMS_ITS | Encounter Summary ---
Author Organization [facility] Address [address] [facility] 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 If no auth needed please schedule patient, this is still an epidural steroid injection, Dr. Nicole would just like to dry a different location to see if patient receives any relief. * Telephone Encounter - Ida Nicole MD - 10/05/2021 1:51 PM CDT [...] from the radiation. * Telephone Encounter - Moni Ann Marienate - 10/05/2021 12:28 PM CDT Patient called to follow up documented in this encounter Plan of Treatment Upcoming Encounters Date Type Department Care Team (Late st Contact Info) Description 07/17/2024 8:45 AM CDT Audiology [facility] Neurological [place] - Audiology Clinic - [facility] [address] [place] [address] Clarissa Bryant, [facility] A [address] [place] [address] Discharge Disposition: Discharged to home or Selfcare 10/05/2024 9:40 AM CDT Outpatient Clinic Visit [facility] Weight Management [address] [place] [address] Ofelia Nguyen APRN, CLEANER TOUCH UP WORKER [address] [place] [address] 11/16/2024 9:00 AM CDT Office Visit [facility] Clinic [address] [place] [address] Phillip Mancia APRN, FELLER MACHINE OPERATOR [address] [place] [address] 01/08/2025 9:30 AM CDT [facility] [address] [place] [address] Milad Willingham APRN, CLEANER TOUCH UP WORKER [address] [address] 05/06/2025 10:30 AM INSULATION BLOWER Office Visit [facility] [address] [place] [address] Marilin Allen, MAIL SORTING SUPERVISOR, FELLER MACHINE OPERATOR [address] [place] [address] Discharge Disposition: Discharged to home or Selfcare documented as of this encounter Goals Goal Patient Goal Type Associated Problems Recent Progress Patient-Stated? Author Manuel would like to walk again Pain Management On track(2024 9:58 AM CDT) No Shanice De Souza RN Note: Goal Reviewed with: patient Readiness to change: Ready to change Department associated with goal: [facility] Steps to achieve goal: Physical therapy surgery documented as of this encounter Visit Diagnoses Not on filedocumented in this encounter Additional Health Concerns Assessment Noted Time PHQ-9 Depression Total Score: 0 06/22/19 21 10:00 AM CDT documented as of this encounter Care Teams Washer And Capper Machine Operator Relationship Specialty Start Date End Date Vasile Lowery MD [address] [place] [address] PCP - General 08/22/09 documented as of this encounter
--- OUTSIDE RECORDS SUMMARY | 2024-07-08 00:12 | XMS_ITS | Clinical Summary ---
Author Organization [facility] [place] Address [address] [place] [address] Care Team Providers Care Cell Operation Supervisor Name Role Phone Vasile Lowery MD Primary Care Provider [phone] Allergies No known active allergies Medications acetaminophen (TYLENOL) 500 MG Tablet Take 1,000 mg by mouth 3 times daily as needed for Pain. Active Multiple Vitamin (MULTI-VITAMIN PO) Take by mouth. Active Omeprazole Magnesium (PRILOSEC PO) Take by mouth every morning. Active Psyllium (METAMUCIL PO) Take by mouth daily. Active Multiple Vitamins-Minerals (ZINC PO) Take 1 Tablet by mouth daily. Active Insulin Syringe-Needle U-100 (INSULIN SYRINGE 1CC/31GX5/16 ) 31G X 5/16 1 ML Misc For use with trimix 90 Each 3 12/28/19 22 Active NEEDLE, DISP, 22 G (BD Eclipse Shielded Needle) 22G X 1 Misc 1 Each by Intramuscular route once a week. 12 Each 1 01/17/20 23 Active Emtricitabine-Teno fovir AF (DESCOVY) 200-25 MG TabletIndications: Encounter for HIV pre-exposure prophylaxis Take 1 Tablet by mouth daily. 90 Tablet 06/05/19 24 Active clotrimazole-betam ethasone (LOTRISONE) 1-0.05 % Cream TOPICAL, apply to affected area twice daily 45 g 1 07/23/19 24 Active COMPOUNDED MEDICATION Quad Mix for ICI Papaverine 30 mg/mL Phentolamine 4 mg/mL Prostaglandin E 40 mcg/mL Atropine 160 mcg/mL Start with 10 units (0.1 mL) daily as needed. Can increase by 10 units (0.1 mL) each dose to a maximum of 100 units (1mL). 5 mL 2 11/12/19 24 Active Additional Information Patient not taking.Reported on 07/03/2024 sildenafil citrate (VIAGRA) 100 MG Tablet Take 1/2 to 1 tab daily as needed for intercourse 30 Tablet 1 12/18/19 24 Active Additional Information Patient not taking.Reported on 07/03/2024 tadalafil (CIALIS) 10 MG Tablet Take 1 Tablet by mouth daily. 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 120 Tablet 04/08/19 25 025 Active DOCUSATE SODIUM PO Take by mouth as needed. Active simvastatin (ZOCOR) 20 MG Tablet TAKE 1 TABLET BY MOUTH EVERY NIGHT 90 Tablet 05/29/19 25 Active amitriptyline (ELAVIL) 75 MG Tablet Take 1 Tablet by mouth nightly. 90 Tablet 1 06/16/19 25 Active tiZANidine (ZANAFLEX) 2 MG Tablet Take 1 Tablet by mouth 3 times daily. 270 Tablet 1 06/16/19 25 Active anastrozole (ARIMIDEX) 1 MG Tablet Take 1 Tablet by mouth once a week 12 Tablet 1 07/02/19 25 Active Additional Information Patient not taking.Reported on 07/03/2024 testosterone cypionate (DEPO-TESTOSTERONE ) 200 MG/ML SolutionIndication s:Male Hypogonadism 0.7 mL by Intramuscular route once a week. Indications: Deficient Activity of the Testis 12 mL 1 07/02/19 25 Active NEEDLE, DISP, 23 G (BD Disp Needle) 23G X 1 Misc To inject testosterone IM weekly 12 Each 2 07/02/19 25 Active SYRINGE-NEEDLE, DISP, 3 ML (B-D 3CC LUER-ALFREDITO SYR 20OA4-9/2) 18G X 1-1/2 3 ML Misc 1 Each by Injection route once a week. 12 Each 3 07/02/19 25 Active amitriptyline (ELAVIL) 75 MG Tablet Take 1 Tablet by mouth nightly. 90 Tablet 1 12/17/19 24 025 Disconti nued(Reo rder) tiZANidine (ZANAFLEX) 2 MG Tablet Take 1 Tablet by mouth in the morning and at bedtime. 180 Tablet 1 12/17/19 24 025 Disconti nued(Reo rder) testosterone cypionate (DEPO-TESTOSTERONE ) 200 MG/ML SolutionIndication s:Testicular hypofunction 0.7 mL by Intramuscular route once a week. 8 mL 2 12/18/19 24 025 Disconti nued(Reo rder) NEEDLE, DISP, 23 G (BD Disp Needle) 23G X 1 Misc To inject testosterone IM weekly 12 Each 2 12/18/19 24 025 Disconti nued(Reo rder) SYRINGE-NEEDLE, DISP, 3 ML (B-D 3CC LUER-ALFREDITO SYR 11SY5-8/2) 18G X 1-1/2 3 ML Misc 1 Each by Injection route once a week. 12 Each 3 12/18/19 24 025 Disconti nued(Reo rder) testosterone cypionate (DEPO-TESTOSTERONE ) 200 MG/ML SolutionIndication s:Testicular hypofunction 0.5 mL by Intramuscular route once a week. 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 Erectile dysfunction 06/08/2013 Hyperlipidemia 10/11/2009 Spermatocele 10/11/2009 Varicocele 10/11/2009 Eczema Class 1 obesity with alveola r hypoventilation without serious comorbidity with body mass index (BMI) of 33.0 to 33.9 in adult Encounters Date Type Department Care Team Description 07/03/2024 8:20 AM CDT Outpatient Clinic Visit [facility] Weight Management [address] [place] [address] Ofelia Nguyen APRN, STEAM CONDITIONING OPERATOR 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 with body mass index (BMI) of 33.0 to 33.9 in adult (HCC) (Primary Dx); Mixed hyperlipidemia; TIFFANY (obstructive sleep apnea); Herniation of intervertebral disc between L5 and S1 Discharge Disposition: Discharged to home or Selfcare 07/03/2024 Telephone [facility] [address] [place] [address] Marilin Allen APRN, TOUR NARRATOR Obstructive Sleep Apnea (Bilevel download) 07/01/2024 8:30 AM CDT [facility] [address] [place] [address] Milad Willingham HARVEST CREW SUPERVISOR, STEAM CONDITIONING OPERATOR BPH with obstruction/lower urinary tract symptoms (Primary Dx); Testicular hypofunction; Anejaculation; Prostate cancer screening; Erectile dysfunction, unspecified erectile dysfunction type; High serum estradiol Discharge Disposition: Discharged to home or Selfcare 07/01/2024 Travel 06/29/2024 Travel 06/24/2024 Telephone [facility] [address] [place] [phone] Vasile Lowery MD Results; Request for Records 06/22/2024 11:50 AM CDT Lab [facility] - Internal Medicine & Pediatrics [address] [place] [address] Lab, [place] [address] In/Pediatrics Testicular hypofunction Discharge Disposition: Discharged to home or Selfcare 06/22/2024 Results Follow-Up [facility] [address] [place] [phone] Elba Mendoza APRN, TOUR NARRATOR Testicular hypofunction 06/22/2024 Travel 06/15/2024 9:30 AM CDT Office Visit [facility] [address] [place] [phone] Phillip Mancia, HARVEST CREW SUPERVISOR, TOUR NARRATOR Spinal stenosis of lumbar region with neurogenic claudication (Primary Dx); s/p left L4-S1 laminoforaminotomy; Postlaminectomy syndrome of lumbar region; Myofascial pain; Herniation of intervertebral disc between L5 and S1; Facet degeneration of lumbosacral region Discharge Disposition: Discharged to home or Selfcare 06/15/2024 Travel 06/09/2024 Telephone [facility] [address] [place] [phone] Milad Willingham APRN, STEAM CONDITIONING OPERATOR Results 06/09/2024 Telephone [facility] - Internal Medicine & Pediatrics - [place] [address] [place] [address] Anastasiia Naqvi, L[facility] ([facility]) 06/08/2024 8:00 AM CDT Office Visit [facility] - Internal Medicine & Pediatrics - [address] [place] [address] Anastasiia Naqvi PAC Pre-operative examination (Primary Dx); Erectile dysfunction due to diseases classified elsewhere; Anal cancer (HCC); BPH with obstruction/lower urinary tract symptoms; Testicular hypofunction; Prostate cancer screening Discharge Disposition: Discharged to home or Selfcare 06/08/2024 Results Follow-Up [facility] [address] [place] [address] Milad Willingham, HARVEST CREW SUPERVISOR, STEAM CONDITIONING OPERATOR 06/08/2024 [facility] [address] [place] [address] Vasile Lowery MD Medication Refill 06/07/2024 Travel 2024 Telephone [facility] [address] [place] [phone] Marilin Allen APRN, TOUR NARRATOR Obstructive Sleep Apnea (CPAP download) 05/28/2024 [facility] [address] [place] [address] Vasile Lowery MD Medication Refill 05/21/2024 9:30 AM EDGE BANDING MACHINE OFFBEARER Audiology [facility] [address] [place] [phone] Bail Bond Agent, Audiology Discharge Disposition: Discharged to home or Selfcare 05/21/2024 Travel 05/08/2024 [facility] [address] [place] [phone] Vasile Lowery MD Referral 05/07/2024 Telephone [facility] Internal Medicine & Pediatrics [facility] [address] [place] [address] Vasile Lowery MD Appointment (Pre op appt needed on or after 3-10) 05/06/2024 10:30 AM EDGE BANDING MACHINE OFFBEARER Office Visit [facility] [address] [place] [address] Marilin Allen, HARVEST CREW SUPERVISOR, TOUR NARRATOR TIFFANY (obstructive sleep apnea) (Primary Dx); Excessive sleepiness Discharge Disposition: Discharged to home or Selfcare 05/04/2024 Travel 04/28/2024 Telephone [facility] [address] [place] [address] Vasile Lowery MD Advice Only from Last 3 Months Immunizations Immunization Administration [...] PUR FLU W/PRES AGE 3+ FULL IM 12/18/2010, 010 PUR TDAP 7+ YRS IM 12/05/2009 Pneumococcal Vaccine Adult - 23 Valent 0 Pneumococcal conjugate PCV20 , polysaccharide [id number] conjugate, adjuvant, PF 02/05/2022 Zoster Vaccine Recombinant [...] oz pur e alcohol) rare use only [employer] Utilities Answer Date Recorded In the past 12 months has [employer], gas, oil, or water [employer] threatened to shut off services in your [...] often do you attend chur ch or oriental orthodox services? 1 to 4 times per year 06/07/2024 Do you belong to any clubs o r organizations such as hindu groups, unions, fraternal or athletic groups, or [...] Total Score - Questions 1-9 4 05/30 [facility] of Occupat ional Health - Occupational Stress [...] any time in the past 12 [facility], were you homeless or living in a skilled nursing (including now)? No 06/07/2024 Education Answer Date Recorded What is the highest level of school you have completed or the highest degree you have received? 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 Not on file Not on file Last Filed Vital Signs Vital Sign Reading Time Taken Comments Blood Pressure 138/64 07/03/2024 8:44 AM CDT Pulse 81 07/03/2024 8:44 AM CDT Temperature 36.6 C (97.8 F) 12/17/2023 11:15 AM CDT Respiratory Rate 18 07/01/2024 8:21 AM CDT Oxygen Saturation 98% 07/03/2024 8:44 AM CDT Inhaled Oxygen Concentration - - Weight 84.5 kg (186 lb 4.8 oz) 07/03/2024 8:44 A M CDT Height 182.9 cm (6') 07/03/2024 8:44 AM CDT Body Mass Index 25.27 07/03/2024 8:44 AM CDT Plan of Treatment Upcoming Encounters Date Type Department Care Team (Late st Contact Info) Description 07/17/2024 8:45 AM CDT Audiology [facility] - [place] [address] [place] [address] Clarissa Bryant, AUD CCC A [address] [place] [phone] Discharge Disposition: Discharged to home or Selfcare 10/05/2024 9:40 AM CDT [facility] [address] [place] [address] Ofelia Nguyen APRN, STEAM CONDITIONING OPERATOR [address] [place] [address] 11/16/2024 9:00 AM CDT Office Visit [facility] [address] [place] [address] Phillip Mancia APRN, TOUR NARRATOR [address] [place] [address] 01/08/2025 9:30 AM CDT Office Visit [facility] [address] [place] [address] Milad Willingham APRN, STEAM CONDITIONING OPERATOR [address] [address] 05/06/2025 10:30 AM EDGE BANDING MACHINE OFFBEARER Office Visit [facility] [address] [place] [address] Marilin Allen APRN, TOUR NARRATOR [address] [place] [address] Discharge Disposition: Discharged to home or Selfcare Health Maintenance Due Date Last Done Comments Cologuard 2004 Immunochemical Fecal Occult Blood 2004 SARS-COV-2 Immunization (6 - Moderna risk season) 2024 02/04/2024, 01/17/2022, 03/01/2021, Additional history exists Colonoscopy 12/15/2029 12/16/2019, 0 09/2016, 09/05/2016, Additional history exists Colorectal Cancer Screening 12/15/2029 Td Immunization Every 10 Years (Adults With 1 Tdap) 02/03/2034 02/04/2024, 12/05/2009 12/16/2019, 09/2016, 09/05/2016, Additional history exists Zoster Immunization Completed 01/29/2022, Pneumococcal Immunization (50+ years) Completed 02/05/2022, 01/11/2020 Pneumococcal Immunization Combined Discontinued 02/05/2022, 01/11/2020 Hepatitis C Virus (HCV) Screening Completed 01/10/2023 Influenza Immunization Completed , 12/05/2022, 12/20/2021, Additional history exists Respiratory Syncytial [...] On track(2024 8:41 AM CDT) Yes Rachel uH, RN Note: Goal Reviewed with:Ray Readiness to change: Ready to change Department associated with goal: [facility] WEIGHT MANAGEMENT Steps to achieve goal: [facility] program Improve diet and eat healthier Help with rectal discomfort Manuel would like to walk again Pain Management On track(2024 9:58 AM CDT) No Shanice De Souza, RN Note: Goal Reviewed with: patient Readiness to change: Ready to change Department associated with goal[facility] Steps to achieve goal: Physical therapy surgery Medical Devices Implanted Type Area Coating Machine Operator Device Identifier Shelf Expiration Date Model / Serial / Lot Powerport Mri Isp Device With 8f Attacha - [id number] Implanted:Qty : 1 on 10/01/[facility] IMPLANT Left: Chest Wall CR BARD / BARD BIOPSY 11/29/2020 [id number] / N/A / [id number] Procedures Procedure Name Priority Date/Time Associated Diagnosis Comments POCT UA AUTOMATED W/O MICRO Routine 07/01/2024 8:23 AM CDT BPH with obstruction/lower urinary tract symptoms UROLOGY CONSULT 06/24/2024 12:00 AM CDT FREE (CALC) AND TOTAL TESTOSTERONE Routine 06/22/2024 [...] EQUIPMENT, SUPPLY, DEVICE DOWNLOAD 06/02/2024 12:00 AM EDGE BANDING MACHINE OFFBEARER EQUIPMENT, SUPPLY, DEVICE DOWNLOAD 05/03/2024 12:00 AM EDGE BANDING MACHINE OFFBEARER HEPATITIS C ANTIBODY Routine 01/10/2023 11:13 AM CDT Need for hepatitis C screening test HM COLONOSCOPY Routine 09/05/2016 from Last 3 Months or Most Recently Relevant to Health Maintenance Results * POCT UA AUTOMATED W/O MICRO (07/01/2024 8:23 AM CDT) POC UA SPECIFIC GRAVITY 1.005 URINE PH 7.0 5.0 - 9.0 POC URINE LEUKOCYTES Negative Negative Samuel/uL POC URINE NITRITE Negative Negative POC URINE PROTEIN Negative Negative mg/dL POC URINE GLUCOSE Negative Negative, Norm mg/dL POC URINE KETONE Negative Negative mg/dL POC URINE UROBILINOGEN Norm Norm, 0.2 E.U./dL (mg/dL), 1 E.U./dL (mg/dL) POC URINE BILIRUBIN Negative Negative mg/dL POC URINE BLOOD INSTRUMENT Negative Negative Arvin/uL POC URINE COLOR Yellow POC URINE CLARITY Clear Urine 07/01/2024 8:23 AM CDT Milad Willingham APRN, STEAM CONDITIONING OPERATOR POINT OF CARE TESTING (MANUAL) Final Result * UROLOGY CONSULT (06/24/2024 12:00 AM CDT) 06/24/2024 us Provider Scan GENERIC SCAN ORDERS CONSULT Aditi l Result SCAN * (ABNORMAL) FREE (CALC) AND TOTAL TESTOSTERONE (06/22/2024 10:16 AM CDT) Only the most recent of2 resultswithin the time period is included. TESTOSTERONE, TOTAL 985(H) 221 - 716 ng/dL 06/22/2024 1:17 PM CDT [facility] FREE TESTOSTERONE CALCULATION 25.27(H) 4.7 - 24.4 ng/dL [facility] ARCH [id number] 06/22/2024 1:17 PM CDT [facility] ALBUMIN 4.1 3.5 - 5.0 g/dL 06/22/2024 1:17 PM CDT [facility] SEX HORMONE BINDING GLOBULIN 31.1 11.0 - 78.0 nmol/L 06/22/2024 1:17 PM CDT [facility] Blood Butterfly Punctu re / Unknown 06/22/2024 10:16 AM CDT 06/22/2024 10:16 AM CDT us Milad Willingham APRN, STEAM CONDITIONING OPERATOR CHEMISTRY ORDERABLES F inal Result Performing Organization Address [facility]/ZIP Co de Phone Number [facility] [address] [place] [address], [place] * (ABNORMAL) ESTRADIOL (06/08/2024 9:04 AM CDT) ESTRADIOL, SERUM 63(H) <=44 pg/mL 06/08/2024 2:01 PM CDT [facility] Blood Venipuncture / Unknown 06/08/2024 9:04 AM CDT 06/08/2024 9:04 AM CDT Narrative [facility] - 06/08/2024 2:01 PM CDT ESTRADIOL VALUE [...] it could produce falsely elevated estradiol results. us Milad Willingham HARVEST CREW SUPERVISOR, STEAM CONDITIONING OPERATOR CHEMISTRY ORDERABLES F inal Result Performing Organization Address [facility] Co de Phone Number [facility] [address] [place] [address], [place] * (ABNORMAL) CBC WITH AUTO DIFFERENTIAL (06/08/2024 9:04 AM CDT) [facility] WBC 5.37 4.00 - 12.00 10(3)/mcL 06/08/2024 1:26 PM CDT [facility] RBC 5.14 4.40 - 5.80 10(6)/mcL 06/08/2024 1:26 PM CDT [facility] HEMOGLOBIN (HGB) 15.0 13.0 - 16.5 g/dL 06/08/2024 1:26 PM CDT [facility] HEMATOCRIT (HCT) 46.3 38.0 - 50.0 % 06/08/2024 1:26 PM CDT [facility] MCV 90.1 82.0 - 96.0 fL 06/08/2024 1:26 PM CDT [facility] MCH 29.2 26.0 - 32.0 pg 06/08/2024 1:26 PM CDT [facility] MCHC 32.4 31.0 - 36.0 g/dL 06/08/2024 1:26 PM CDT [facility] PLATELET COUNT 242 140 - 440 10(3)/mcL 06/08/2024 1:26 PM CDT [facility] RDW 14.6 11.8 - 15.5 % 06/08/2024 1:26 PM CDT [facility] MPV 9.9 8.0 - 12.6 fL 06/08/2024 1:26 PM CDT [facility] NEUTROPHILS 77.0(H) 40.0 - 68.0 % 06/08/2024 1:26 PM CDT [facility] LYMPHOCYTES 9.7(L) 19.0 - 49.0 % 06/08/2024 1:26 PM CDT [facility] MONOCYTES 9.5 3.0 - 13.0 % 06/08/2024 1:26 PM CDT [facility] EOSINOPHILS 3.4 0.0 - 8.0 % 06/08/2024 1:26 PM CDT [facility] BASOPHILS 0.4 0.0 - 1.0 % 06/08/2024 1:26 PM CDT [facility] ABSOLUTE NEUTROPHILS 4.14 1.40 - 5.30 10(3)/[facility] 06/08/2024 1:26 PM CDT [facility] ABSOLUTE LYMPHOCYTES 0.52(L) 0.90 - 3.30 10(3)/[facility] 06/08/2024 1:26 PM CDT [facility] ABSOLUTE MONOCYTES 0.51 0.10 - 0.90 10(3)/[facility] 06/08/2024 1:26 PM CDT [facility] ABSOLUTE EOSINOPHIL 0.18 0.00 - 0.50 10(3)/[facility] 06/08/2024 1:26 PM CDT [facility] ABSOLUTE BASOPHILS 0.02 0.00 - 0.10 10(3)/[facility] 06/08/2024 1:26 PM CDT [facility] NRBC PER 100 WBC 0 06/09/19 25 1:26 PM CDT [facility] Blood Venipuncture / Unknown 06/08/2024 9:04 AM CDT 06/08/2024 9:04 AM CDT us Anastasiia Naqvi [facility] HEMATOLOGY ORDERABLES Final Res ult [facility] [address] [place] [address], [place] * PSA SCREEN (06/08/2024 9:04 AM CDT) PSA SCREEN, TOTAL 0.90 <4.00 ng/mL 06/08/2024 2:03 PM CDT [facility] Blood Venipuncture / Unknown 06/08/2024 9:04 AM CDT 06/08/2024 9:04 AM CDT Narrative [facility] - 06/08/2024 2:03 PM CDT The [employer]INITY Total PSA assay is a Chemiluminescent Microparticle Immunoassay (CMIA) for the quantitative determination of total PSA (both free PSA and PSA complexed to [id number]) in human serum. Total PSA values obtained with different assay methods, including Sanz PSA assays, cannot be used interchangeably. us Milad Willingham HARVEST CREW SUPERVISOR, STEAM CONDITIONING OPERATOR CHEMISTRY ORDERABLES F inal Result [facility] [address] [place] [address], [place] * (ABNORMAL) CMP (COMPREHENSIVE METABOLIC PANEL) (06/08/2024 9:04 AM CDT) SODIUM 138 136 - 145 mmol/L 06/08/2024 1:28 PM CDT [facility] POTASSIUM 4.2 3.5 - 5.1 mmol/L 06/08/2024 1:28 PM CDT [facility] CHLORIDE 104 98 - 107 mmol/L 06/08/2024 1:28 PM CDT [facility] CO2, VENOUS 26 22 - 30 mmol/L 06/08/2024 1:28 PM CDT [facility] ANION GAP 8.0 <18.0 mmol/L 06/08/2024 1:28 PM CDT [facility] GLUCOSE 88 70 - 99 mg/dL 06/08/2024 1:28 PM CDT [facility] BUN 11 8 - 26 mg/dL 06/08/2024 1:28 PM CDT [facility] CREATININE, BLOOD 0.86 0.70 - 1.30 mg/dL 06/08/2024 1:28 PM CDT [facility] BUN/CREATININE RATIO 13 12 - 20 ratio 06/08/2024 1:28 PM CDT [facility] TOTAL PROTEIN 6.0 6.0 - 8.0 g/dL 06/08/2024 1:28 PM CDT [facility] ALBUMIN 3.8 3.5 - 5.0 g/dL 06/08/2024 1:28 PM CDT [facility] A/G RATIO 1.7 1.0 - 2.2 06/08/2024 1:28 PM CDT [facility] CALCIUM 8.6(L) 8.7 - 10.5 mg/dL 06/08/2024 1:28 PM CDT [facility] T BILI 0.6 0.2 - 1.2 mg/dL 06/08/2024 1:28 PM CDT [facility] SGOT (AST) 22 <43 U/L 06/08/2024 1:28 PM CDT [facility] SGPT (ALT) 19 <56 U/L 06/08/2024 1:28 PM CDT [facility] ALKALINE PHOSPHATASE 115 40 - 150 U/L 06/08/2024 1:28 PM CDT [facility] IS THE PATIENT REQUIRED TO BE FASTING? No 06/08/2024 1:28 PM CDT [facility] GFR, ESTIMATED >60 >=60 06/08/2024 1:28 PM CDT [facility] Comment: Creatinine Clearance is the preferred criteria for selecting drug dose adjustments in renally impaired patients. The GFR is provided as additional pertinent clinical information. GFR is reported in mL/min/1.73 sq m. Calculation based on the Chronic Kidney Disease Epidemiology Collaboration (CKD- EPI) equation refit without adjustment for race. GFR, EST. >60 >=60 025 1:28 PM CDT [facility] GFR, EST. NONAFRICAN >60 >=60 06/08/2024 1:28 PM CDT [facility] Blood Venipuncture / Unknown 06/08/2024 9:04 AM CDT 06/08/2024 9:04 AM CDT us Anastasiia Naqvi PAC CHEMISTRY ORDERABLES Final Resu lt [facility] [address] [place] [address], * EKG 12 LEAD (06/08/2024 7:39 AM CDT) Ventricular Rate 77 BPM EXTERNAL EKG Atrial Rate 77 BPM EXTERNAL EKG P-R Interval 168 ms EXTERNAL EKG QRS Duration 104 ms EXTERNAL EKG Q-T Duration 388 ms EXTERNAL EKG QTC CALCULATION 439 ms EXTERNAL EKG P [place] -17 degrees EXTERNAL EKG R [place] -15 degrees EXTERNAL EKG T [place] 11 degrees EXTERNAL EKG 06/08/2024 7:39 AM CDT Impressions EXTERNAL EKG - 06/08/2024 10:20 PM CDT Normal sinus rhythm Normal ECG No previous ECGs available Confirmed by Colt Owen ([id number]) on 06/08/2024 10:19:56 PM Narrative Procedure Note Colt Owen MD - 06/08/2024 IMPRESSION: Normal sinus rhythm Normal ECG No previous ECGs available Confirmed by Colt Owen ([id number]) on 06/08/2024 10:19:56 PM Anastasiia Naqvi PAC IMG ECG ORDERABLES Final Result Performing Organization Address City/[facility] Co de Phone Number EXTERNAL EKG * EQUIPMENT, SUPPLY, DEVICE DOWNLOAD (06/02/2024 12:00 AM EDGE BANDING MACHINE OFFBEARER) 06/02/2024 Provider Scan GENERIC SCAN ORDERS Final Result Performing Organization Address City/[facility] Co de Phone Number SCAN * EQUIPMENT, SUPPLY, DEVICE DOWNLOAD (05/03/2024 12:00 AM EDGE BANDING MACHINE OFFBEARER) 05/03/2024 Provider Scan GENERIC SCAN ORDERS Final Result Performing Organization Address [facility] de Phone Number SCAN * HEPATITIS C ANTIBODY (01/10/2023 11:13 AM CDT) hepatitis C antibody 0.11 <1 S/CO [facility] ARCH [id number] B 01/10/2023 5:14 PM CDT [facility] Comment: Signal/Cutoff ratio < 0.79 is Nondetected Signal/Cutoff ratio 0.80-0.99 is Grayzone Signal/Cutoff ratio > 0.99 is Detected Supplemental assays are recommended if signal/cutoff ratio is >/=1.00. Signal/cutoff ratio result >/= 5.00 is 97% predictive of positivity for recombinant immunoblot assay (RIBA) and will be reported to the [place] [facility] as required. Blood Venipuncture / Unknown 01/10/2023 11:13 AM CDT 01/10/2023 11:13 AM CDT us Vasile Lowery MD CHEMISTRY ORDERABLES Final Resu lt [facility] [address] [place] [address], [place] * COLONOSCOPY (09/05/2016) us Not On File Provider PROCEDURE/MINOR SURGICAL OR DERABLES Final Result from Last 3 Months or Most Recently Relevant to Health Maintenance Insurance MEDICARE [facility] Care Teams Cell Operation Supervisor Relationship Specialty Start Date End Date Vasile Lowery MD [address] [place] [address] PCP - General 08/22/09
--- OUTSIDE RECORDS SUMMARY | 2024-07-08 00:12 | XMS_ITS | Encounter Summary ---
Author Organization [facility] Address [address] [facility] 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 Gender Identity Not on file Sexual [...] Info) Description 07/17/2024 8:45 AM CDT Audiology [facility] - Audiology Clinic - [facility] [address] [place] [address] Clarissa Bryant, AUD CCC A [address] [place] [phone] Discharge Disposition: Discharged to home or Selfcare 10/05/2024 9:40 AM CDT Outpatient Clinic [facility] [address] [place] [address] Ofelia Nguyen, PHYSICAL TRAINER, YARD PERSON [address] [place] [address] 11/16/2024 9:00 AM CDT Office Visit [facility] [address] [place] [address] Phillip Mancai, MERVIN, STATION WORKER [address] [place] [address] 01/08/2025 9:30 AM CDT Office Visit [facility] [address] [place] [address] Milad Willingham, PHYSICAL TRAINER, YARD PERSON [address] [address] 05/06/2025 10:30 AM AMERICANIZATION TEACHER Office Visit [facility] [address] [place] [address] de Marilin Lee, PHYSICAL TRAINER, STATION WORKER [address] [place] [address] Discharge Disposition: Discharged to home or Selfcare documented as of this encounter Goals Goal Patient Goal Type Associated Problems Recent Progress Patient-Stated? Author Manuel would like to walk again Pain Management On track(2024 9:58 AM CDT) Shanice Hall, RN Note: Goal Reviewed with: patient Readiness to change: Ready to change Department associated with goal: [facility] Steps to achieve goal: Physical therapy surgery documented as of this encounter Results * TYPE & SCREEN (CROSSMATCH CONVERTIBLE) (08/01/2021 7:28 AM CDT) ABO TYPING B 08/01/2021 8:36 AM CDT [facility] RH Positive 08/01/2021 8:36 AM CDT [facility] ABSC Negative 08/01/2021 8:36 AM CDT [facility] Blood Venipuncture / Unknown 08/01/2021 7:28 AM CDT 08/01/2021 7:47 AM CDT us Param Villatoro MD BLOOD BANK ORDERABLES Edited Res ult - Final [facility] [address] [place] [address], [place] documented in this encounter Visit Diagnoses Diagnosis Preop testing- Primary Preoperative examination, unspecified documented in this encounter Additional Health Concerns Assessment Noted Time PHQ-9 Depression Total Score: 0 06/22/19 21 10:00 AM CDT documented as of this encounter Care Teams Rope Cleaner Relationship Specialty Start Date End Date Vasile Lowery MD [address] [place] [address] PCP - General 5/24/10 documented as of this encounter
--- OUTSIDE RECORDS SUMMARY | 2024-07-08 00:12 | XMS_ITS | Data Portability ---
Author Organization [facility], [address] [facility]) Address [address] [place] [address] Care Team Providers Care Mobile Service Rv Technician Name Role Phone MIGUEL PUMA Primary Care Provider [place] Hematology/Oncology Assessment Encounter Date Assessment Date Assessment LastModified by Organization Details LastModified Time 01/20/2024 01/20/2024 -ORDERS: Jun- Aug 2024 Colonoscopy 50936, REUA, Excision of internal Anal canal Papillae 25614, Anoscopy with Biopsies and possible ablation 12309, [address] Prep: Mechanical bowel prep OR: 45 min, [...] CLINI C [address],[facility] [place] [address] Ph. [phone] David Everett MD, PhD, Medic al Direc tor HELIO DANGELO, BLANKA Bonilla MD Patie nt: SANDRA HANSON ND G Sampl e ID: [id number] Repor t Statu s: Final :0 1955 Case #: [id number] Age: 68 Y Gende r: M Date Colle cted: 01/19 MRN # : [id number] Date Recei emanuel: 01/20 Repor angelica Date: [...] focal mild infla mmati on - Negat gisueppe for squam ous intra epith elial lesio [...] Not Available [facility] Only - [facility] [address] [place] [address], [address], 01/24/2024 14:55:19 Result Notes None recorded. Problems Name Problem SNOMED Code Status Onset Date Resolution Date Notes Provider Name and Address Organization Details Recorded Time Carpal tunnel syndrome 55271573 Completed 202301/13/2024 Le guzman, [facility] 15:28:43 Eczema 95942928 Completed 202301/13/2024 [facility]28[facility]48 Polyp of colon 14779197 Completed 202301/13/2024 Le aJmas null, [facility] 15:28:54 Contact dermatitis 52150353 Completed 202301/13/2024 [facility] 15[facility]29:00 Fibrosarcom a Completed 202301/13/2024 Le Irons null, [facility] 15:29:10 Iron deficiency anemia 05918888 Completed 202301/13/2024 Le Irons null, [facility] 15:29:18 Obstructive sleep apnea syndrome 75854768 Completed 202301/13/2024 Le Irons null, [facility] 15:29:23 Postoperati ve nausea and vomiting 5967391 Completed 202301/13/2024 Le Irons null, [facility] 15:29:28 Psoriasis 8691752 Completed 202301/13/2024 [facility] 15:29:36 Inguinal hernia 218961170 Completed 202301/13/2024 [facility] 15:29:42 Umbilical hernia 791104373 Completed 202301/13/2024 [facility] 15:29:48 Obesity 136249243 Completed 202301/13/2024 [facility] 15:29:57 Spinal stenosis 44779390 Completed 202301/13/2024 Le Irons null, [facility] 15:30:03 Hyperlipide heena 71290174 Completed 202301/13/2024 Le Irons null, [facility] 15:30:11 Varicocele 76670905 Completed 202301/13/2024 [facility] 15:30:16 Benign prostatic hyperplasia 035975862 Completed 202301/13/2024 [facility]:25 Erectile dysfunction 511583358 Completed 202301/13/2024 Le [facility]u [facility]:30:30 Malignant tumor of anus 837911168 Active 2023 Ronnie Ruiz MD [address] [place] [address], [address], [facility] 4 14:50:03 Anal intraepithe lial neoplasia 272871556 Active 2023 Ronnie Ruiz MD [address] [place] [address], [address], [facility] 4 14:51:02 Malignant tumor of pelvis 288167838 Active 2023 Ronnie Ruiz MD [address] [place] [address], [address], [facility] 4 14:51:46 Incontinenc e of feces 18063384 Active 2023 Ronnie Ruiz MD [address] [place] [address], [address], [facility] 4 14:56:25 Hypertrophi ed anal papilla 39907394 Active 2023 Ronnie Ruiz MD [address] [place] [address], [address], [facility] 4 14:59:52 Problem Notes None recorded. Procedures Surgical History Date Name Laterality Status Provider Name and Address Organization Details Recorded Time 01/20/20 24 SC Procedure completed Silvia Lovett [facility] 01/20/2024 16:51:19 colonoscopy completed Lesameera Barrow [facility] 01/13/2024 15:26:34 colonoscopic polypectomy completed Le [facility] 01/13/2024 15:26:40 excision of condylomata acuminatum completed [facility] 01/13/2024 15:26:57 excision of anal skin tag completed [facility] 01/13/2024 15:27:39 primary lumbar discectomy completed [facility] 01/13/2024 15:27:21 proctoscopy completed [facility] 01/13/2024 15:28:00 tooth extraction completed [facility] 01/13/2024 15:28:11 insertion of implantable venous access port completed [facility] 01/13/2024 15:28:29 Imaging Results None recorded. Procedure Notes None recorded. Medical Equipment None Reported. Allergies No known drug allergies Medications Name Sig Start Date Stop Date Status Note LastModified by Organization Details LastModified Time tizanidine 2 mg tablet TAKE 1 TABLET BY MOUTH THREE TIMES DAILY active Not Available Not Available No [...] Available Not Available No t Available Hypodermic Harvard 23 gauge x 1 USE TO INJECT TESTOSTER ONE INTO THE MUSCLE WEEKLY active Not Available Not Available No t Available tamsulosin 0.4 mg capsule TAKE 1 CAPSULE BY MOUTH DAILY active Not Available Not Available No t Available simvastatin 20 mg tablet TAKE 1 TABLET BY MOUTH [...] Not Available Not Available No t Available levofloxaci n 500 mg tablet TAKE 1 TABLET BY MOUTH DAILY. START ONE DAY PRIOR TO PROCEDURE active Not Available Not Available No t Available BD Luer-Mariluz Syringe 3 mL 18 x 1 1/2 USE WITH INJECTION ONCE A WEEK active Not Available Not [...] Available Not Available No t Available tadalafil 10 mg tablet TAKE ONE TABLET BY MOUTH EVERY DAY active Not [...] active Not Available Not Available Not Available sodium,pota ssium,mag sulfates 17.5 gram-3.13 gram-1.6 gram oral soln MIX AND DRINK DIRECTED active Not Available Not Available No t Available Phospho-Tri n Neutral 250 mg tablet TAKE 1 TABLET BY MOUTH TWICE DAILY FOR 14 DAYS active Not Available Not Available No t Available Vitals Date Recorded Body height Body mass index (BMI) Body weight Heart rate Systolic blood pressure Diastolic blood pressure Provider Name and Address Organization Details Last Updated DateTime 4 182.88 cm 26.3 kg/m2 82708.9 2 g 103 /min 135 mm[Hg] 63 mm[Hg] Le Barrow [facility] 4 13:57:43 Social History None recorded. Functional [...] SNOMED-CT Code Diagnosis ICD10 Code Diagnosis Note [id number] Ronnie Ruiz MD [facility]orect[facility] l ([facility]) [address] [facility],[address] [place] [address] 01/20/2024 13:33:38 01/20/2024 17:36:14 Malignant tumor of anus 664333737 C21.0 1. Anal squamous cell carcinoma [id number] now status post completion of chemoradia tion complete 11/19/2016. No evidence of recurrence . Continue with surveillan ce given his high risk. Recent MRI showed some increased activity in the right side of the anal canal but I think this may be his anal papillae. I do not see anything concerning on exam today. We will continue to monitor. Please see below.[facility] Anal intra epithelial neoplasia 337721897 K62.82 Condyloma acuminata and high grade squamous [...] do the next round with his colonoscop y.[facility] History of polyp of colon 518612962 Z86.0100 History of colon polyps. Adenoma 2020. Due for surveillan ce 2024. Plan for colonoscop y early next year. He verbalizes understand ing and agrees.[facility] Malignant tumor of pelvis 992557906 C49.5 Right ischiorect al space spindle cell [...] not see any concerning features on HRA today.[facility] Incontinence of feces 72 535351 R15.9 Some incontinen ce infrequent ly to flatus. We talked about potentiall y decreasing the amount of fiber he takes to see if this helps with is flatus. We will continue to monitor this. Likely some combinatio n of age, radiation changes, postsurgic al changes. If this persists we can have him evaluated for sacral nerve stimulator .gaf Hypertroph ied anal papilla 19545926 K62.89 Two left-sided , benign-alex earing anal papillae. I discussed this with the patient. We will plan on excision of these in the operating room under sedation at the same time of his colonoscop y in the upcoming months. He verbalizes understand ing and agrees.[facility] Health Concerns Section Related Observation LastModified by Organization Detai ls LastModified Time None Recorded Concern Status LastModified by Organization Details LastModified Time None Recorded Advance Directives Directive None Recorded Payers Encounter Date Sequence Insurance Name Policy Number Policy Weinstein Covered Member ID Weinstein Member ID Guarantor Name 01/20/2024 1 [place] Manuel Rivera Jeronimo [id number] Manuel G Jeronimo 01/20/2024 2 [facility] (MEDICARE SUPPLEMENT) Manuel Rivera Jeronimo [id number] Manuel G Jeronimo Notes Date Note Type Note Provider Name [...] gas and fecal incontinence. No other concerning findings.[facility] Ronnie Ruiz MD [address] , [place], [address], [facility] 01/21/2024 13:41:53
--- OUTSIDE RECORDS SUMMARY | 2024-07-08 00:12 | XMS_ITS | Encounter Summary ---
Author Organization [facility] Address [address] [facility] [place] [address] Phone Care Team Providers Care Watch Hairspring Assembler Name Role Phone Vasile Lowery MD Primary Care Provider [phone] Reason for Visit * Reason Comments Medication Refill Encounter Details Date Type Department Care Team (Late st Contact Info) Description 09/08/2019 Refill [facility] - Internal Medicine & Pediatrics - [address] [place], [place] [address] Vasile Lowery MD [address] [place], [place] [address] Medication Refill Social History Tobacco Use Types [...] on file Legal Sex Male 3:54 AM VISUAL MERCHANDISING MANAGER Gender Identity Not on file Sexual [...] * Telephone Encounter - Katia Block APN, BUSINESS SPECIALIST - 09/08/2019 2:42 PM CDT Refill request [...] Description 07/17/2024 8:45 AM CDT Audiology [facility] - [place] [address] [place] [address] Clarissa Bryant, AUD CCC A [address] [place] [address] Discharge Disposition: Discharged to home or Selfcare 10/05/2024 9:40 AM CDT Outpatient Clinic Visit [facility] [address] [place] [address] Ofelia Nguyen APRN, WELDING PROCESS ENGINEER [address] [place], [place] [address] 11/16/2024 9:00 AM CDT Office Visit [facility] [address] [place] [address] Phillip Mancia, SUPERVISOR ELECTRON TUBE PROCESSING, BUSINESS SPECIALIST [address] [place], [place] [address] 01/08/2025 9:30 AM CDT Office Visit [facility] [address] [place] [address] Milad Willingham, SUPERVISOR ELECTRON TUBE PROCESSING, WELDING PROCESS ENGINEER [address] [place] [address] 05/06/2025 10:30 AM VISUAL MERCHANDISING MANAGER Office Visit [facility] [address] [place] [facility] [place] [address] Marilin Allen, SUPERVISOR ELECTRON TUBE PROCESSING, BUSINESS SPECIALIST [address] [place] [address] Discharge Disposition: Discharged to home or Selfcare documented as of this encounter Visit Diagnoses Not on filedocumented in this encounter Additional Health Concerns Infection Onset Date Last Indicated Resolved Time COVID - 19 04/18/2021 04/18/2021 04/20/2021 9:41 AM VISUAL MERCHANDISING MANAGER COVID - 19 Confirmed 04/18/2021 04/18/2021 022 12:16 AM VISUAL MERCHANDISING MANAGER Assessment Noted Time PHQ-9 Depression Total Score: 0 05/19/19 20 9:06 AM VISUAL MERCHANDISING MANAGER documented as of this encounter Care Teams Watch Hairspring Assembler Relationship Specialty Start Date End Date Vasile Lowery MD [address] [facility] [place] [address] PCP - General 08/22/09 documented as of this encounter
--- OUTSIDE RECORDS SUMMARY | 2024-07-08 00:12 | XMS_ITS | Encounter Summary ---
Author Organization [facility] Address [address] [facility] [place] [address] Phone Care Team Providers Care Roller Mechanic Name Role Phone Vasile Lowery MD Primary Care Provider [phone] Reason for Visit * Reason Comments Medication Refill Encounter Details Date Type Department Care Team (Late st Contact Info) Description 05/28/2024 Refill [facility] - Internal Medicine & Pediatrics - [address] [place], [place] [address] Vasile Lowery MD [address] [place], [place] [phone] Medication Refill Social History Tobacco Use Types [...] on file Legal Sex Male 3:54 AM FUND RAISER Gender Identity Not on file Sexual Orientation Not on file 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 Not on file Not on file documented as of this encounter Miscellaneous Notes * Telephone Encounter - Vasile Lowery MD - 05/29/2024 9:00 AM CST Rx filled electronically (E-prescribe) RAISER documented in this encounter Plan of Treatment Upcoming Encounters Date Type Department Care Team (Late st Contact Info) Description 07/17/2024 8:45 AM CDT Audiology [facility] - [facility]iology [facility] - [facility] [address] [place] [address] Clarissa Bryant, [facility] CCC A [address] [place] [address] Discharge Disposition: Discharged to home or Selfcare 10/05/2024 9:40 AM CDT Outpatient Clinic Visit [facility] [address] [place] [address] Ofelia Nguyen APRN, X RAY EQUIPMENT SERVICER [address] [place] [address] 11/16/2024 9:00 AM CDT Office Visit [facility] [address] [place] [address] Phillip Mancia APRN, INTELLECTUAL PROPERTY PARALEGAL [address] [place], [place] [address] 01/08/2025 9:30 AM CDT [facility] [address] [place] [address] Milad Willingham APRN, X RAY EQUIPMENT SERVICER [address] [address] 05/06/2025 10:30 AM FUND RAISER Office Visit [facility] [address] [place] [address] Marilin Allen, ERP DEVELOPER, INTELLECTUAL PROPERTY PARALEGAL [address] [place] [address] Discharge Disposition: Discharged to home or Selfcare documented as of this encounter Goals Goal Patient Goal Type Associated Problems Recent Progress Patient-Stated? Author Pursue weight loss Healthy Lifestyle On track(2024 8:41 AM CDT) Yes Rachel Hu, RN Note: Goal Reviewed with:Ray Readiness to change: Ready to change Department associated with goal: [facility] Steps to achieve goal: [facility] program Improve diet and eat healthier Help with rectal discomfort Manuel would like to walk again Pain Management On track(2024 9:58 AM CDT) No Shanice De Souza, RN Note: Goal Reviewed with: patient Readiness to change: Ready to change Department associated with goal: [facility] Steps to achieve goal: Physical therapy surgery documented as of this encounter Visit Diagnoses Not on filedocumented in this encounter Additional Health Concerns Assessment Noted Time PHQ-9 Depression Total Score: 0 01/11/20 23 11:06 AM CDT documented as of this encounter Care Teams Roller Mechanic Relationship Specialty Start Date End Date Vasile Lowery MD [address] [place] [address] PCP - General 08/22/09 documented as of this encounter
--- OUTSIDE RECORDS SUMMARY | 2024-07-08 00:12 | XMS_ITS | Encounter Summary ---
Author Organization [facility] Address [address] [facility] 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 on file Not on file documented as of this encounter Plan of Treatment Upcoming Encounters Date Type Department Care Team (Late st Contact Info) Description 07/17/2024 8:45 AM CDT Audiology [facility] Neu[facility] - Audiology Clinic - [facility] [address] [place] [address] Clarissa Bryant, AUD CCC A [address] [place] [address] Discharge Disposition: Discharged to home or Selfcare 10/05/2024 9:40 AM CDT Outpatient [facility] [address] [place] [address] Ofelia Nguyen KITCHEN AND BATH DESIGNER, TILER'S ASSISTANT [address] [place] [address] 11/16/2024 9:00 AM CDT Office Visit [facility] Pain Clinic [address] [place] [address] Phillip Mancia, KITCHEN AND BATH DESIGNER, CAR LOT ATTENDANT [address] [facility] [address] [place] [address] 01/08/2025 9:30 AM CDT Office Visit [facility] [address] [place] [address] Milad Willingham, KITCHEN AND BATH DESIGNER, TILER'S ASSISTANT [address] [address] 05/06/2025 10:30 AM GAGE MAKER Office Visit [facility] [address] [place] [address] Marilin Allen, KITCHEN AND BATH DESIGNER, CAR LOT ATTENDANT [address] [place] [address] Discharge Disposition: Discharged to home or Selfcare documented as of this encounter Goals Goal Patient Goal Type Associated Problems Recent Progress Patient-Stated? Author Pursue weight loss Healthy Lifestyle On track(2024 8:41 AM CDT) Yes Rachel Hu, RN Note: Goal Reviewed with:Ray Readiness to change: Ready to change Department associated with goal: [facility] WEIGHT MANAGEMENT Steps to achieve goal: MWLC program Improve diet and eat healthier Help with rectal discomfort Manuel would like to walk again Pain Management On track(2024 9:58 AM CDT) No Shanice De Souza, RN Note: Goal Reviewed with: patient Readiness to change: Ready to change Department associated with goal: [facility] PAIN CLINIC Steps to achieve goal: [...] 645 mg/dL 01/10/2024 10:45 AM CDT [facility] Blood 01/10/2024 8:19 AM CDT 01/10/2024 10:04 AM CDT Gudelia Astudillo MD IMMUNOLOGY ORDERABLES Final Res ult [facility] [address] [place] [address], [place] * GLIADIN IGA ANTIBODY - CELIAC (01/10/2024 8:19 AM CDT) DEAMIDATED GLIADIN IGA <0.2 <15.0 U/mL 01/10/2024 11:13 AM CDT [facility] Blood 01/10/2024 8:19 AM CDT 01/10/2024 10:04 AM CDT Narrative [facility] - 01/10/2024 11:13 AM CDT Antibody testing was performed by multiplex flow immunoassay on the BioPlex platform. Gudelia Astudillo MD IMMUNOLOGY ORDERABLES Final Res ult Performing Organization Address [facility] Co de Phone Number [facility] [address] [place] [address], [place] * TISSUE TRANSGLUTAMINASE IGA - CELIAC (01/10/2024 8:19 AM CDT) TTG IGA <0.5 <15.0 U/mL 01/10/2024 11:13 AM CDT [facility] Blood 01/10/2024 8:19 AM CDT 01/10/2024 10:04 AM CDT Narrative [facility] - 01/10/2024 11:13 AM CDT Antibody testing was performed by multiplex flow immunoassay on the BioPlex platform. Gudelia Astudillo MD IMMUNOLOGY ORDERABLES Final Res ult [facility] [address] [place] [address], documented in this encounter Visit Diagnoses Diagnosis 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 of connective and other soft tissue of pelvis Malignant neoplasm of anus, unspecified documented in this encounter Additional Health Concerns Assessment Noted Time PHQ-9 Depression Total Score: 0 01/11/20 23 11:06 AM CDT documented as of this encounter Care Teams Preparation Plant Repairer Relationship Specialty Start Date End Date Vasile Lowery MD [address] [place] [address] PCP - General 08/22/09 documented as of this encounter
--- OUTSIDE RECORDS SUMMARY | 2024-07-08 00:12 | XMS_ITS | Encounter Summary ---
Author Organization [facility] Address [address] [facility] [place] [address] Phone Care Team Providers Care Resort Desk Clerk Name Role Phone Vasile Lowery MD Primary Care Provider [phone] Reason for Visit * Reason Comments Medication Refill Encounter Details Date Type Department Care Team (Late st Contact Info) Description 09/21/2020 Refill [facility] - Internal Medicine & Pediatrics - [address] [place], [place] [address] Vasile Lowery MD [address] [place], [place] [id number] Medication Refill Social History Tobacco Use Types [...] on file Legal Sex Male 3:54 AM EP TECHNOLOGIST Gender Identity Not on file Sexual Orientation [...] Called patient. He states he plans to package pick up his albuterol inhaler from the pharmacy tomorrow. [...] Info) Description 07/17/2024 8:45 AM CDT Audiology [facility] - Audiology Clinic - [facility] [address] [place] [address] Clarissa Bryant, AUD CCC A [address] [place] [address] Discharge Disposition: Discharged to home or Selfcare 10/05/2024 9:40 AM CDT Outpatient Clinic Visit [facility] Weight Management [address] [place] [address] Ofelia Nguyen CNC CUTTING OPERATOR, ATTENUATOR [address] [place] [address] 11/16/2024 9:00 AM CDT Office Visit [facility] Pain Clinic [address] [place] [address] Phillip Mancia APRN, FOUNTAIN MANAGER [address] [facility] [address] [place] [address] 01/08/2025 9:30 AM CDT [facility] [address] [place] [address] Milad Willingham APRN, ATTENUATOR [address] [address] 05/06/2025 10:30 AM EP TECHNOLOGIST Office Visit [facility] [address] [place] [address] Marilin Allen CNC CUTTING OPERATOR, FOUNTAIN MANAGER [address] [place] [address] Discharge Disposition: Discharged to home or Selfcare documented as of this encounter Goals Goal Patient Goal Type Associated Problems Recent Progress Patient-Stated? Author Manuel would like to walk again Pain Management On track(2024 9:58 AM CDT) Shanice Hall, RN Note: Goal Reviewed with: patient Readiness to change: Ready to change Department associated with goal: [facility] PAIN CLINIC Steps to achieve goal: Physical therapy surgery documented as of this encounter Visit Diagnoses Not on filedocumented in this encounter Additional Health Concerns Infection Onset Date Last Indicated Resolved Time COVID - 19 04/18/2021 04/18/2021 04/20/2021 9:41 AM EP TECHNOLOGIST COVID - 19 Confirmed 04/18/2021 04/18/2021 022 12:16 AM EP TECHNOLOGIST Assessment Noted Time PHQ-9 Depression Total Score: 0 06/22/19 21 10:00 AM CDT documented as of this encounter Care Teams Resort Desk Clerk Relationship Specialty Start Date End Date Vasile Lowery MD [address] [place] [address] PCP - General 08/22/09 documented as of this encounter
--- OUTSIDE RECORDS SUMMARY | 2024-07-08 00:12 | XMS_ITS | Encounter Summary ---
Author Organization [facility] Address [address] [facility] [place] [address] Phone Care Team Providers Care Contract Negotiation Manager Name Role Phone Vasile Lowery MD Primary Care Provider [phone] Reason for Visit * Reason Comments Medication Refill Encounter Details Date Type Department Care Team (Late st Contact Info) Description 08/31/2020 Refill [facility] - Internal Medicine & Pediatrics - [address] [place], [place] [address] Vasile Lowery MD [address] [place], [place] [id number] Medication Refill Social History Tobacco Use Types [...] on file Legal Sex Male 3:54 AM KENNEL TECHNICIAN Gender Identity Not on file Sexual Orientation [...] Info) Description 07/17/2024 8:45 AM CDT Audiology [facility] - Audiology Clinic - [facility] [address] [place] [address] Clarissa Bryant, [facility] CCC A [address] [place] [address] Discharge Disposition: Discharged to home or Selfcare 10/05/2024 9:40 AM CDT [facility] [address] [place] [address] Ofelia Nguyen WIRE TEMPERER, TEXTILE KNITTER [address] [place] [address] 11/16/2024 9:00 AM CDT Office Visit [facility] Pain Clinic [address] [place] [address] Phillip Mancia, WIRE TEMPERER, TERMINAL GAUGER [address] [place] [address] 01/08/2025 9:30 AM CDT [facility] [address] [place] [address] Milad Willingham WIRE TEMPERER, TEXTILE KNITTER [address] [place] [address] 05/06/2025 10:30 AM KENNEL TECHNICIAN Office Visit [facility] [address] [facility] [place] [address] Marilin Allen, WIRE TEMPERER, TERMINAL GAUGER [address] [facility] [address] Discharge Disposition: Discharged to home or Selfcare documented as of this encounter Visit Diagnoses Not on filedocumented in this encounter Additional Health Concerns Infection Onset Date Last Indicated Resolved Time COVID - 19 04/18/2021 04/18/2021 04/20/2021 9:41 AM KENNEL TECHNICIAN COVID - 19 Confirmed 04/18/2021 04/18/2021 022 12:16 AM KENNEL TECHNICIAN Assessment Noted Time PHQ-9 Depression Total Score: 0 06/22/19 21 10:00 AM CDT documented as of this encounter Care Teams Contract Negotiation Manager Relationship Specialty Start Date End Date Vasile Lowery MD [address] [address] PCP - General 08/22/09 documented as of this encounter
--- OUTSIDE RECORDS SUMMARY | 2024-07-08 00:12 | XMS_ITS | Encounter Summary ---
Author Organization [facility] Address [address] [place] [place] [address] Phone Care Team Providers Care Picture Frame Maker Name Role Phone Vasile Lowery MD Primary Care Provider [phone] Encounter Details Date Type Department Care Team (Late st Contact Info) Description 12/02/2020 Lab Requisition [facility] Laboratory Services [address] [place] [address] Gudelia Astudillo MD [address] [place] [address] Malignant neoplasm of connective and soft tissue [...] on file Legal Sex Male 3:54 AM WASTE WATER PLANT OPERATOR Gender Identity Not on file Sexual [...] Description 07/17/2024 8:45 AM CDT Audiology [facility] - Audiology Clinic - [facility] [address] [place] [address] Clarissa Bryant, AUD CCC A [address] [place] [phone] Discharge Disposition: Discharged to home or Selfcare 10/05/2024 9:40 AM CDT [facility] [address] [place] [address] Ofelia Nguyen DRAPERY CUTTER, TRANSCRIPTION COORDINATOR [address] [place] [address] 11/16/2024 9:00 AM CDT Office Visit [facility] Pain Clinic [address] [place] [address] Phillip Mancia, DRAPERY CUTTER, ASSET PROTECTION OFFICER [address] [place] [address] 01/08/2025 9:30 AM CDT [facility] [address] [place] [address] Milad Willingham, DRAPERY CUTTER, TRANSCRIPTION COORDINATOR [address] [address] 05/06/2025 10:30 AM WASTE WATER PLANT OPERATOR Office Visit [facility] [address] [place] [phone] Marilin Allen, DRAPERY CUTTER, ASSET PROTECTION OFFICER [address] [place] [address] Discharge Disposition: Discharged to home or Selfcare documented as of this encounter Goals Goal Patient Goal Type Associated Problems Recent Progress Patient-Stated? Author Manuel would like to walk again Pain Management On track(2024 9:58 AM CDT) No Shanice De Souza, RN Note: Goal Reviewed with: patient Readiness to change: Ready to change Department associated with goal: [facility] PAIN CLINIC Steps to achieve [...] PROTEIN <7 mg/dL 12/07/2020 11:43 AM CDT [facility] INTERPRETATION URINE Urine immunofixation electrophoresis is negative for monoclonal immunoglobulins and Bence Mancia protein. Reviewed by Dr. Kamini Albert, PhD. Reviewed by Michi Garza M.D. 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 of connective and other soft tissue of pelvis Malignant neoplasm of anus, unspecified Anemia, unspecified Other fatigue documented in this encounter Additional Health Concerns Infection Onset Date Last Indicated Resolved Time COVID - 19 04/18/2021 04/18/2021 04/20/2021 9:41 AM WASTE WATER PLANT OPERATOR COVID - 19 Confirmed 04/18/2021 04/18/2021 022 12:16 AM WASTE WATER PLANT OPERATOR Assessment Noted Time PHQ-9 Depression Total Score: 0 06/22/19 21 10:00 AM CDT documented as of this encounter Care Teams Picture Frame Maker Relationship Specialty Start Date End Date Vasile Lowery MD [address] [address] PCP - General 08/22/09 documented as of this encounter
--- OUTSIDE RECORDS SUMMARY | 2024-07-08 00:13 | XMS_ITS | Encounter Summary ---
Author Organization [facility] Address [address] 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 Not on file Not on file documented as of this encounter Miscellaneous Notes * Telephone Encounter - Francoise Cabral Chucho - 08/27/2023 8:16 AM CDT Called and spoke with pt he will get labs done and then call back to reschedule documented in this encounter Plan of Treatment Upcoming Encounters Date Type Department Care Team (Late st Contact Info) Description 07/17/2024 8:45 AM CDT Audiology [facility] - Audiology Clinic - [facility] [address] [place] [address] Clarissa Bryant, [facility] A [address] [place] [phone] Discharge Disposition: Discharged to home or Selfcare 10/05/2024 9:40 AM CDT [facility] [address] [place] [address] Ofelia Nguyen APRN, SUBSTATION OPERATOR CHIEF [address] [place] [address] 11/16/2024 9:00 AM CDT Office Visit [facility] Pain Clinic [address] [place] [address] Phillip Mancia, CAN CLOSING MACHINE TENDER, FISHER CLAM [address] [place] [address] 01/08/2025 9:30 AM CDT [facility] [address] [place] [address] Milad Willingham APRN, SUBSTATION OPERATOR CHIEF [address] [place] [address] 05/06/2025 10:30 AM PECAN SHELLER Office Visit [facility] [address] [place] [address] Marilin Allen, CAN CLOSING MACHINE TENDER, FISHER CLAM [address] [place] [address] Discharge Disposition: Discharged to home or Selfcare documented as of this encounter Goals Goal Patient Goal Type Associated Problems Recent Progress Patient-Stated? Author Pursue weight loss Healthy Lifestyle On track(2024 8:41 AM CDT) Yes Rachel Hu, RN Note: Goal Reviewed with:Ray Readiness to change: Ready to change Department associated with goal: [facility] WEIGHT MANAGEMENT Steps to achieve goal: MWLC program Improve diet and eat healthier Help with rectal discomfort Manuel would like to walk again Pain Management On track(2024 9:58 AM CDT) No Shanice De Souza, RN Note: Goal Reviewed with: patient Readiness to change: Ready to change Department associated with goal: [facility] PA[facility]IN[facility] Steps to achieve goal: Physical therapy surgery documented as of this encounter Visit Diagnoses Not on filedocumented in this encounter Additional Health Concerns Assessment Noted Time PHQ-9 Depression Total Score: 0 01/11/20 23 11:06 AM CDT documented as of this encounter Care Teams Pile Header Relationship Specialty Start Date End Date Vasile Lowery MD [address] [place] [address] PCP - General 08/22/09 documented as of this encounter
--- OUTSIDE RECORDS SUMMARY | 2024-07-08 00:13 | XMS_ITS | Encounter Summary ---
Author Organization [facility] Address [address] [facility] [place] [address] Phone Care Team Providers Care Bevel Polisher Name Role Phone Vasile Lowery MD Primary Care Provider [phone] Reason for Visit * Reason Onset Date Comments Obstructive Sleep Apnea 07/03/2024 Bilevel download Encounter Details Date Type Department Care Team (Late st Contact Info) Description 07/03/2024 Telephone [facility] [address] [place] [address] Marilin Allen, SOUND CONTROLLER, FLIGHT CONTROL SPECIALIST [address] [place], [place] [phone] Obstructive Sleep Apnea (Bilevel download) Social History Tobacco Use Types Packs/Day Years Used Date Smoking Tobacco: Never Passive Smoke Exposure: Past Smokeless Tobacco: Never Alcohol Use Standard Drinks/Week Comments No 0 (1 standard drink = 0.6 oz pur e alcohol) rare use only [facility] Utilities Answer Date Recorded In the past 12 months has e electric, gas, oil, or water company [...] How often do you attend chur or synagogue services? 1 to 4 times per year 06/07/2024 Do you belong to any clubs o r organizations such as mu-ism groups, unions, fraternal or athletic groups, or [...] Total Score - Questions 1-9 4 05/30 [facility] - Occupational Stress Questionnaire Answer [...] any time in the past 12 m [facility], were you homeless or living in a chcf (including now)? No 06/07/2024 Education Answer Date Recorded What is the highest level of school you have completed or the highest degree you have received? 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 He verbalized understanding, and is agreeable to pressure change. He will call if he has any problems tolerating the new pressure. EPAP changed to 18 cm on AirView. Notification of pressure change faxed to [facility]. Will route to Marilin as FYI. * Telephone Encounter - Lesley Calixto RN - 07/03/2024 9:32 AM CDT First attempt to contact patient with results of Bilevel download. Message left for patient/patient civil rights representative to call back to [phone] option 3 for a nurse. * Telephone Encounter - Marilin Allen APRN, CNP - 07/03/2024 8:50 AM CDT I reviewed his bilevel download for the past month at 21/16 cm pressure His apnea events improved slightly to 15.8/hr A majority of events are obstructive. His leak has improved also this past month, especially in the past week. Please ask how he is tolerating this setting. If he is agreeable, I would like to change his pressure to 21/18 and recheck his download next month. Thank you documented in this encounter Plan of Treatment Upcoming Encounters Date Type Department Care Team (Late st Contact Info) Description 07/17/2024 8:45 AM CDT Audiology [facility] - Audiology Clinic - [facility] [address] [place] [address] Clarissa Bryant [facility] A [address] [place] [address] Discharge Disposition: Discharged to home or Selfcare 10/05/2024 9:40 AM CDT Outpatient Clinic Visit [facility] Weight Management [address] [place] [address] Ofelia Nguyen APRN, COMMUNITY DEVELOPMENT OFFICER [address] [place] [address] 11/16/2024 9:00 AM CDT Office Visit [facility] Pain Clinic [address] [place] [address] Phillip Mancia APRN, FLIGHT CONTROL SPECIALIST [address] [place], [place] [phone] 01/08/2025 9:30 AM CDT Office Visit [facility] [address] [place] [address] Milad Willingham, SOUND CONTROLLER, COMMUNITY DEVELOPMENT OFFICER [address] [facility] [address] [place] [address] 05/06/2025 10:30 AM MEDICAL CHIEF TECHNICIAN Office Visit [facility] [address] [place] [address] Marilin Allen, SOUND CONTROLLER, FLIGHT CONTROL SPECIALIST [address] [place], [place] [address] Discharge Disposition: Discharged to home or Selfcare documented as of this encounter Goals Goal Patient Goal Type Associated Problems Recent Progress Patient-Stated? Author Pursue weight loss Healthy Lifestyle On track(2024 8:41 AM CDT) Yes Rachel Hu, RN Note: Goal Reviewed with:Ray Readiness to change: Ready to change Department associated with goal: [facility] WEIGHT MANAGEMENT Steps to achieve goal: MWLC program Improve diet and eat healthier Help with rectal discomfort Manuel would like to walk again Pain Management On track(2024 9:58 AM CDT) No Shanice De Souza, RN Note: Goal Reviewed with: patient Readiness to change: Ready to change Department associated with goal: [facility] PAIN CLINIC Steps to achieve goal: Physical therapy surgery documented as of this encounter Visit Diagnoses Not on filedocumented in this encounter Additional Health Concerns Assessment Noted Time PHQ-9 Depression Total Score: 4 06/09/19 25 8:00 AM CDT documented as of this encounter Care Teams Bevel Polisher Relationship Specialty Start Date End Date Vasile Lowery MD [address] [facility], [place] [phone] PCP - General 08/22/09 documented as of this encounter
[2024-07-08] MEDS: LACTATED RINGERS 1,000 ML 30 ML IV CONT ×2 (09:30→13:28)
[2024-07-08] MEDS: GENTAMICIN SULFATE INJ 415 MG in DEXTROSE 5% 100 ML 100 MG IVPB (09:30)
[2024-07-08] MEDS: VANCOMYCIN 1,250 MG/NS 250 ML 1,250 MG/250 ML BAG 166.67 MG IVPB (09:30)
--- NOTE | 2024-07-08 09:38 | WPDHPUPDATE1 ---
History and Physical Update Update Date/Time: 07/08/24 09:38 History and Physical has been reviewed, including an updated exam of the patient. There are NO changes in the patient's condition. Risks, benefits, and alternatives have been discussed and questions answered. Patient agrees to proceed with procedure.
--- NOTE | 2024-07-08 10:48 | P.PNAN_ITS ---
Anes - Initial Pre Proc Eval Procedure: Operation Date: 07/08/24 11:00 Proposed Procedures p Insertion Penile Implant Prosthesis - Iban Gr MD s Scrotoplasty - Iban Gr MD Date/Time: 07/08/24 10:48 Surgeon: Iban Gr MD Pre Op Diagnosis: Erectile Dysfunction Patient Data Age: 69 Gender: M Height: 1.83 m Weight: 82.1 kg Last Vital Signs Temp 36.6 C 07/08/24 10:33 Pulse 88 07/08/24 10:33 Resp 16 07/08/24 10:33 BP 143/72 H 07/08/24 10:33 Pulse Ox 100 07/08/24 10:33 O2 Del Method Room Air 07/08/24 10:33 Allergies Allergy/AdvReac Type Severity Reaction Status Date / Time No Known Allergies Allergy Verified 07/08/24 10:30 Home Medications ?Medication ?Instructions ?Recorded ?Confirmed ?Type acetaminophen 500 mg tablet 1,000 mg PO ONCE PRN pain 06/24/24 07/08/24 History (Tylenol Extra Strength) amitriptyline 75 mg tablet 75 mg PO DAILY 06/24/24 07/08/24 History docusate sodium 100 mg capsule 100 mg PO DAILY 06/24/24 07/08/24 History (Col-Rite) emtricitabine 200 mg-tenofovir 1 tablet PO Q24H 06/24/24 07/08/24 History disoproxil fumarate 300 mg tablet ibuprofen 400 mg tablet 200 mg PO ONCE PRN pain 06/24/24 07/08/24 History needle (disp) 23 gauge 23 gauge x 06/24/24 06/24/24 History 1 (Hypodermic [place]) phentermine 15 mg capsule 15 mg PO DAILY 06/24/24 07/08/24 History sildenafil 100 mg tablet 100 mg PO Q24H PRN erectile 06/24/24 07/08/24 History dysfunction simvastatin 20 mg tablet 20 mg PO QPM 06/24/24 07/08/24 History syringe with needle 3 mL 18 x 1 06/24/24 06/24/24 History 1/2 (BD Luer-Mariluz Syringe) tadalafil 10 mg tablet 10 mg PO DAILY 06/24/24 07/08/24 History testosterone cypionate 200 mg/mL 200 mg subcut WEEKLY 06/24/24 07/08/24 History intramuscular oil tizanidine 2 mg tablet 2 mg PO Q6H muscle spasm 06/24/24 07/08/24 History Patient hx anesthesia problems: post op nausea/vomiting Family hx anesthesia problems: none Results Review: All pre-operative results and documents have been reviewed as part of the pre- operative evaluation. [facility] Social History Social History Smoking status: Never smoker Drinks per week: 1 Substance use: never Living arrangements: with friend(s) Spiritual care concerns: No Anes - Eval Final PreProcedure Day of Procedure 07/08/24 10:48 Patient weight: normal Heart: regular rate and rhythm Lungs: clear to auscultation Airway: Mallampati scale class II Neurological: alert and oriented Last oral intake: >/= 8 hours ASA classification: III Emergent: no Anesthetic plan: proceed Anesthesia type and monitoring: general LMA and standard monitoring Results Review: All pre-operative results and documents have been reviewed as part of the pre- operative evaluation. Informed Consent: The patient's anesthetic plan and its attendant risks and benefits were discussed with the patient/family/POA. Questions were solicited and answers provided to the satisfaction of the patient/family/POA.
[2024-07-08] MEDS: ceFAZolin SODIUM 1 GM VIAL (11:14)
[2024-07-08] MEDS: LIDOCAINE 1% LOCAL INJ 10 ML VIAL 20 ML INFILTRATE (11:14)
[2024-07-08] MEDS: BUPivacaine HCL 0.25% PF 10 ML VIAL INFILTRATE (12:09)
[2024-07-08] MEDS: CELLULOSE OXIDIZED 4 x 8 INCH 1 PKT XX (12:56)
--- NOTE | 2024-07-08 13:31 | P.OP_ITS ---
Procedure Note - Detailed Date of Procedure 07/08/24 Pre-op Diagnosis Erectile Dysfunction, penoscrotal fusion Post-op Diagnosis Same Procedure Performed 1. Insertion of 3-piece inflatable penile prosthesis. 2. Artificial erection using pharmacological agent. 3. Scrotoplasty Surgeon Iban Gr MD Anesthesia General Description of Procedure Informed consent obtained, patient taken to the operating room and given preoperative IV antibiotics with vancomycin and gentamicin. Additionally the patient has been taking oral levofloxacin and done a 3-day wash with Hibiclens. The patient was shaved. He was then prepped with Betadine scrub and paint followed by ChloraPrep. Sterile drapes were placed. We again prepped with ChloraPrep. A 16-[place] Grover catheter was inserted with return of clear urine. We then performed a pharmacologically induced erection with dilute lidocaine. There was a symmetric, straight erection. We then made a penoscrotal atul- shaped incision removing a 3x2cm penoscrotal fusion. We dissected bluntly down to identify the corporal bodies taking great care not to injure the urethra. Stay sutures of 2-0 PDS were placed in the corporal body. We sharply opened the corpora. We then serially dilated up to a 12 Sosa dilator. We then measured the corpora. Measurements were 10 cm proximally and 11.5 cm distally. We irrigated and there was no injury. We then performed an identical procedure on the contralateral side. Measurements were 9.5 cm proximal, 12cm distal. Dilators were placed into the corpora bilaterally confirming that there was no crossover. We elected to place an AMS CX device 21 cm + 0.5 cm of rear tip extenders. We again irrigated the corporal bodies. We then inserted the prosthesis. We inflated using a surrogate reservoir and the device sat nicely with tips in the mid glans. We then deflated. We then closed the pre-placed 2-0 PDS sutures. We again inflated using the surrogate reservoir with an excellent cosmetic result. We then made a right lower quadrant incision for approximately 2 cm. We bluntly dissected down to the external oblique fascia. The fascia was opened. We then the rectus muscle and created a space superiorly in the sub rectus. We emptied the bladder prior to our incision. We then irrigated copiously. We pre- placed 0 Vicryl sutures. We placed the reservoir in the sub rectus space. We fill it with 110 mL and there was no back pressure. We then left 90mL in the reservoir. Our pre-placed external oblique fascia sutures were closed. We then made a subdartos pouch in the midline for the pump placement. It sat nicely in the inferior scrotum. The tubing was then brought up to the abdominal incision. Using the quick connect device, we connected the pump to the reservoir. We then cycled the device again and it functioned nicely. We then removed the stay sutures through the glans. We then again irrigated copiously. Surgicel was placed over corporotomy site and over fascial opening. We closed the scrotal incision in the scrotoplasty fashion with multiple layers of 3-0 Vicryl sutures and then 3-0 and 4-0 Monocryl skin closure. The right lower quadrant incision was closed with 2-0 Vicryl to [employer], 3-0 Vicryl deep dermal layer and a 4-0 Monocryl subcuticular closure. Glue was placed over all incisions. A compressive dressing was placed. Patient was awakened and taken to recovery room in stable condition. Estimated Blood Loss 50 Pathology Yes Complications No immediate complications Condition Stable Disposition PACU
[2024-07-08] MEDS: oxyCODONE HCL (*CRX) 5 MG TAB IR PO (15:01)
== END 2024-07-08 16:05 | disposition home or self-care (01) ==
PROVIDERS: Visit Provider Urology
PROC: (CPT 54405; principal; 2024-07-08 11:00)
PROC: (CPT 54700; 2024-07-08 11:00)
DX: N52.01 Erectile dysfunction due to arterial insufficiency (principal); E29.1 Testicular hypofunction; N40.1 Benign prostatic hyperplasia with lower urinary tract symptoms; Q55.69 Other congenital malformation of penis; Z79.1 Long term (current) use of non-steroidal anti-inflammatories (NSAID)
CPT/HCPCS: 54405; 54235; 55175; A9270; C1813; J0690; J1100; J1580; J2003; J2405; J2704; J3010; J3370; J7030; J7120